=== PATIENT | male | born 1960 | race Caucasian/White ===

== ENCOUNTER 2020-02-15 10:08 | Outpatient (CLI) | payer OTHER, SELFPAY ==
[2020-02-15 10:19] LABS: Basophils Absolute Auto 0.1 K/mm3 (0.0-0.1); Basophils Percent Auto 1.1 % (0.2-1.2); Eosinophils Absolute Auto 0.3 K/mm3 (0-0.3); Eosinophils Percent Auto 4.5 % (0-4.4); Hematocrit 40.5 % (42.0-52.0); Hemoglobin 13.5 g/dL (14.0-18.0); Immature Granulocyte Absolute 0.01 K/mm3 (0.00-0.031); Immature Granulocyte Percent A 0.1 % (0-0.5); Lymphocytes Absolute Auto 1.06 K/mm3 (0.9-3.2); Lymphocytes Percent Auto 14.1 % (18.3-44.2); Mean Corpuscular HGB Conc 33.3 g/dl (32-36); Mean Platelet Volume 9.4 fl (7.4-10.4); Monocytes Absolute Auto 0.7 K/mm3 (0.1-0.6); Monocytes Percent Auto 9.5 % (2.6-8.5); Neutrophils Absolute Auto 5.3 K/mm3 (1.3-6.7); Neutrophils Percent Auto 70.7 % (45.5-73.1); Platelet Count Result 222 k/mm3 (150-375); Red Blood Count 4.22 M/mm3 (4.6-6.20); Red Cell Distribution Width 14.6 % (11.5-14.5); White Blood Count 7.5 K/mm3 (4.5-10.0)
[2020-02-15 13:39] LABS: Alanine Aminotransferase 14 U/L (4-50); Alkaline Phosphatase 123 U/L (38-126); Aspartate Amino Transferase 22 U/L (17-59); Bilirubin,Total 0.2 mg/dL (0.2-1.3); Blood Urea Nitrogen 14 mg/dL (9-20); Calcium 9.1 mg/dL (8.4-10.2); Carbon Dioxide 32 mmol/L (22-30); Chloride 99 mmol/L (98-107); Estimated Glomerular Filt Rate > 60; Glucose 84 mg/dL (75-110); Lactate Dehydrogenase 400 U/L (313-618); Sodium 138 mmol/L (137-145)
[2020-02-15 13:59] LABS: Immunoglobulin G 606 mg/dL (700-1600); Immunoglobulin M 86 mg/dL (40-230)
[2020-02-15 14:01] LABS: Immunoglobulin A < 40 mg/dL (70-400)
== END 2020-02-15 10:09 | disposition home or self-care (01) ==
PROVIDERS: PCP Family Medicine; Visit Provider Internal Medicine Hematology & Oncology
DX: R77.1 Abnormality of globulin (principal); C82.90 Follicular lymphoma, unspecified, unspecified site
CPT/HCPCS: 36415; 80053; 82784; 83615; 85025

== ENCOUNTER 2020-03-31 07:34 | Outpatient (CLI) | payer OTHER, SELFPAY ==
--- NOTE | ~2020-03-31 | CT_ITS ---
EXAMINATION: CT soft tissue neck chest w DATE: 03/31/2020 09:17 INDICATION: Follicular lymphoma, unspecified. TECHNIQUE: Computed tomography (CT) of the neck and chest was performed with 75 mL Omnipaque-350 intr avenous contrast. Automated exposure control and iterative reconstruction technique were employed. Th e dose-length product was 599.34 mGy-cm. COMPARISON: Neck and chest CT 10/31/2018 FINDINGS: NECK CT: There are no pathologically enlarged lymph nodes. There is plaque in the proximal internal c arotid arteries with 0% stenosis relative to normal distal artery lumen diameters. There is mucosal t hickening in the paranasal sinuses including near complete opacification of left maxillary sinus. The re is thickening and sclerosis of the vilchis of left maxillary sinus, consistent with chronic sinusiti s. The mastoid air cells are normal. There is mild cervical spondylosis. There is extensive dental d isease. CHEST CT: There is symmetric scarring at the lung apices. There is mild emphysema. There are tree-in- bud opacities in right lower lobe, right middle lobe, and lingula. Calcified left lung nodules and ca lcified left hilar and mediastinal lymph nodes are consistent with old granulomatous disease. There i s a trace right pleural effusion. The heart size is normal. There are coronary artery calcifications. There are calcifications of the aortic valve. No pericardial effusion. There is ectasia of ascending aorta measuring 4.0 cm. There are no pathologically enlarged lymph nodes. There are greater than 10 low-attenuation lesions in the spleen measuring up to 17 mm, worsened from 14 mm. A 16 mm lesion prev iously measured 12 mm. A 15 mm lesion previously measured 12 mm. There is mild thoracic spondylosis. There is mild chronic height loss of multiple vertebral bodies. IMPRESSION: 1. Worsened splenic lesions, consistent with granulomatous disease versus lymphoma. 2. Worsened tree-in-bud opacities in the right lower lobe, right middle lobe, and lingula, most likel y pneumonia. Lymphoma may rarely present as tree-in-bud opacities. Reviewed, dictated and finalized at location A. IMPRESSION: 1. Worsened splenic lesions, consistent with granulomatous disease versus lymph courtney. 2. Worsened tree-in-bud opacities in the right lower lobe, right middle lobe, a nd lingula, most likely pneumonia. Lymphoma may rarely present as tree-in-bud o pacities.
== END 2020-03-31 07:35 | disposition home or self-care (01) ==
LOC: ANHIMG 07:42
PROVIDERS: PCP Family Medicine; Visit Provider Internal Medicine Hematology & Oncology
DX: C82.90 Follicular lymphoma, unspecified, unspecified site (principal); D73.89 Other diseases of spleen; R91.8 Other nonspecific abnormal finding of lung field
CPT/HCPCS: 70491; 71260; Q9967

== ENCOUNTER 2022-11-01 14:40 | Outpatient (CLI) | payer OTHER, SELFPAY ==
[2022-11-01 14:51] LABS: Basophils Absolute Auto 0.1 K/mm3 (0.0-0.1); Basophils Percent Auto 0.6 % (0.2-1.2); Eosinophils Absolute Auto 0.2 K/mm3 (0-0.3); Eosinophils Percent Auto 1.9 % (0-4.4); Hematocrit 44.5 % (42.0-52.0); Hemoglobin 15.1 g/dL (14.0-18.0); Immature Granulocyte Absolute 0.03 K/mm3 (0.00-0.031); Immature Granulocyte Percent A 0.3 % (0-0.5); Lymphocytes Absolute Auto 1.18 K/mm3 (0.9-3.2); Lymphocytes Percent Auto 11.5 % (18.3-44.2); Mean Corpuscular HGB Conc 33.9 g/dl (32-36); Mean Corpuscular Hemoglobin 32.8 pg (26-34); Mean Corpuscular Volume 96.5 fl (80-100); Mean Platelet Volume 9.3 fl (7.4-10.4); Monocytes Absolute Auto 0.6 K/mm3 (0.1-0.6); Monocytes Percent Auto 5.9 % (2.6-8.5); Neutrophils Absolute Auto 8.2 K/mm3 (1.3-6.7); Neutrophils Percent Auto 79.8 % (45.5-73.1); Platelet Count Result 255 k/mm3 (150-375); Red Blood Count 4.61 M/mm3 (4.6-6.20); Red Cell Distribution Width 11.8 % (11.5-14.5); White Blood Count 10.3 K/mm3 (4.5-10.0)
[2022-11-01 16:39] LABS: Alanine Aminotransferase 63 U/L (6-50); Albumin Level 4.1 g/dL (3.5-5.1); Alkaline Phosphatase 98 U/L (38-126); Anion Gap 7 mmol/L (8-16); Aspartate Amino Transferase 64 U/L (17-59); Bilirubin,Total 0.5 mg/dL (0.2-1.3); Blood Urea Nitrogen 8 mg/dL (9-20); Calcium 9.2 mg/dL (8.4-10.2); Carbon Dioxide 34 mmol/L (22-30); Chloride 97 mmol/L (98-107); Estimated Glomerular Filt Rate > 60; Glucose 109 mg/dL (65-110); Lactate Dehydrogenase 160 U/L (120-246); Potassium 3.4 mmol/L (3.4-5.0); Sodium 138 mmol/L (137-145)
[2022-11-01 16:47] LABS: Immunoglobulin G 500 mg/dL (700-1600); Immunoglobulin M 209 mg/dL (40-230)
[2022-11-01 18:56] LABS: Immunoglobulin A < 40 mg/dL (70-400)
== END 2022-11-01 14:41 | disposition home or self-care (01) ==
LOC: ANHLAB 14:41
PROVIDERS: Visit Provider Internal Medicine Hematology & Oncology
DX: D80.1 Nonfamilial hypogammaglobulinemia (principal); C82.90 Follicular lymphoma, unspecified, unspecified site
CPT/HCPCS: 36415; 80053; 82784; 83615; 85025

== ENCOUNTER 2024-11-25 09:04 | Inpatient (IN) | payer OTHER, SELFPAY ==
[2024-11-25] VITALS (10 sets, daily range): BP systolic 97–135; BP diastolic 64–92; PULSE 79–103; RESP 16–20; TEMP 36.4–37.4; O2SAT 90–99; BMI 17.2
--- NOTE | ~2024-11-25 | XR_ITS ---
EXAMINATION: XR chest 2V DATE: 11/25/2024 10:15 INDICATION: Chest pain with inspiration. TECHNIQUE: Frontal and lateral views of the chest were obtained. COMPARISON: Chest 2 views 10/08/2017, chest CT 03/31/2020 FINDINGS: There are lucencies in the lungs, consistent with emphysema. There is peripheral scarring i n the upper lobes. A calcified left lung nodule is consistent with old granulomatous disease. There a re airspace opacities in right lower lung zone. No pleural effusion or pneumothorax. The heart size i s normal. There is chronic height loss of multiple vertebral bodies. There are surgical clips in righ t axilla. IMPRESSION: 1. Airspace opacities in right lower lung zone, consistent with pneumonia. 2. Emphysema. Reviewed, dictated and finalized at location B.
--- NOTE | ~2024-11-25 | CT_ITS ---
CTA chest PE protocol Ordering provider: NOE Hanna History: 64 years Male with . Rule out PE. VQ was non-diagnostic. Premed ordered . Comparison: March 31, 2020 Technique: CT angiogram chest was performed following timed intravenous injection of contrast. Thin s lice axial images and reformatted coronal images were obtained. Three dimensional reformatted images of the chest were also obtained using a [employer] workstation. . Automated exposure control and iterati ve reconstruction technique were employed. The dose-length product was 188.82 mGy-cm. 100 mL Omnipaqu e 350 was given IV. Findings: PULMONARY ARTERIES: No pulmonary embolus. VISUALIZED THORACIC INLET: Normal. MEDIASTINUM: Aorta/coronary arteries: Mild atheromatous disease. Ascending aorta measures 4.2 cm. Heart/other: The heart is not enlarged. Lymph nodes: No mediastinal or hilar adenopathy. LUNGS: No pulmonary nodules or masses. No effusions. No pneumothorax. Multiple patchy areas of consolidation seen in the right middle and lower lobe suggestive of focal pneumonia. Underlying emphysematous changes. Pleural thickening is seen in the left upper lobe laterally VISUALIZED UPPER ABDOMEN: Otherwise, the visualized upper abdomen is normal. MUSCULOSKELETAL: Soft tissues: The superficial soft tissues are normal. Bones: Age appropriate degenerative changes of the spine. Compression fracture is seen in the midthor acic and upper thoracic area most likely chronic. IMPRESSION: 1. No pulmonary embolism. 2. Multiple patchy areas of consolidation in the right middle lower lobe suggestive of pneumonia. Fo llow-up to resolution advised. 3. Multilevel compression fractures most likely chronic. Reviewed, dictated and finalized at location A. IMPRESSION: 1. No pulmonary embolism. 2. Multiple patchy areas of consolidation in the right middle lower lobe sugge stive of pneumonia. Follow-up to resolution advised. 3. Multilevel compression fractures most likely chronic.
--- NOTE | ~2024-11-25 | NM_ITS ---
EXAMINATION: NM pulmonary perfusion DATE: 11/25/2024 14:43 INDICATION: Right mid back pain. TECHNIQUE: 5.5 mCi Tc-99m MAA was administered intravenously for perfusion images. Scintigraphic palomo ges of the chest were obtained. COMPARISON: Chest 2 views 11/25/2024, ventilation perfusion scintigraphy 04/22/17 FINDINGS: There are large defects in the lower lobes with worsening in superior segment right lower lobe when c ompared to 04/23/2017. There are large defects in left lower lobe, stable from 04/23/2017. IMPRESSION: 1. Nondiagnostic (intermediate probability for pulmonary embolism). Reviewed, dictated and finalized at location B.
--- NOTE | ~2024-11-25 | US_ITS ---
EXAMINATION: US venous doppler [facility] DATE: 11/25/2024 12:22 INDICATION: Lower limb pain. TECHNIQUE: Grayscale ultrasound images without and with compression and Doppler ultrasound images of the bilateral lower extremity veins were obtained. COMPARISON: Ultrasound 03/28/2016 FINDINGS: The visualized portions of right common femoral vein, profunda (deep) femoral vein, femoral vein, pop liteal vein, peroneal veins, posterior tibial veins, and greater saphenous vein outflow are patent. The visualized portions of left common femoral vein, profunda femoral vein, femoral vein, popliteal v ein, peroneal veins, posterior tibial veins, and greater saphenous vein outflow are patent. IMPRESSION: 1. No deep venous thrombosis. Reviewed, dictated and finalized at location B.
--- NOTE | 2024-11-25 09:27 | ECG_ITS ---
Test Date: 2024-11-25 09:35:46 Measurements Intervals [place] Rate: 85 P: -73 DE: 146 QRS: 66 QRSD: 77 T: 37 QT: 401 QTc: 477 Interpretive Statements ECTOPIC ATRIAL RHYTHM POSSIBLE RIGHT VENTRICULAR CONDUCTION DELAY [RSR (QR) IN V1/V2] VOLTAGE CRITERIA FOR LVH [MEETS CRITERIA IN ONE OF: R(aVL), S(V1), R(V5), R(V5/V6)+S(V1)] POSSIBLE SEPTAL MYOCARDIAL INFARCTION , PROBABLY OLD [30 ms Q WAVE IN V1/V2] No previous ECG available for comparison Electronically Signed On 11-25-2024 13:43:09 CDT by Pam Kiser M.D.
--- NOTE | 2024-11-25 09:54 | ED.SOB ---
HPI - SOB/Dyspnea General Chief Complaint: Shortness of Breath/Dyspnea Stated Complaint: SOB Time Seen by Provider: 11/25/24 09:34 Source: patient and old records reviewed Mode of arrival: ambulatory Limitations: no limitations History of Present Illness HPI Narrative: Patient is a 64 y/o male, with PMH of Non-Hodgkin's lymphoma in 2003, who presents to the ED with c/o right mid back pain and shortness of breath. Patient reports he began feeling increasingly short of breath last night. Reports having pain in his right mid back, worse with movement and deep breathing. Has not tried anything for his pain. Has been feeling increasingly short of breath. Also reports productive cough. Does have history of chronic cough, but states he has been bringing up green sputum over the last couple of days. Reports history of frequent pneumonia. Reports he is supposed to be on immunomodulator medications for his lymphoma, but has not been on this for at least 3 years. Has not seen a doctor for the past 3 years. Reports diaphoresis. Denies known fevers. Denies chest pain. Denies abdominal pain. Denies previous history of blood clots. Related Data Allergies Allergy/AdvReac Type Severity Reaction Status Date / Time milk Allergy Mild Diarrhea Verified 11/25/24 10:09 Iodinated Contrast Media Allergy Unknown Hives Verified 11/25/24 10:09 Review of Systems Review of Systems: All systems reviewed & are unremarkable except as noted in HPI. All systems reviewed & are unremarkable except as noted in HPI and below PMFSH Past Medical History Medical History Tobacco dependence Polysubstance abuse Chronic obstructive pulmonary disease Hepatitis C Cocaine use disorder, moderate, in sustained remission (~1993) Opioid use disorder, moderate, in controlled environment (~1993) Non-Hodgkin's lymphoma (~2003) Coronary artery disease due to lipid rich plaque (~03/2016) Anxiety associated with depression (2003) Depression due to physical illness (2003) Chronic pain due to malignant neoplastic disease (~1993) Surgical History Surgical History History of arthroscopy of left knee Family History Family History Mother Family history of coronary artery disease Family history of heart disease in male family member before age 55 Family history of cardiovascular disease, Onset Age: 74 Acute myocardial infarction Family history of congestive heart failure Sibling Family history of heart disease in male family member before age 55 Family history of cardiovascular disease Father Cerebrovascular accident, Onset Age: 80 Hypertension Family history of congestive heart failure Other Diabetes mellitus Family history of kidney disease Social History Social History Social History: Surrogate medical decision maker: Edie Cobb, mother. Code status: Full code. Smoking packs per day: 1 Smoking cigarettes per day: 20.0 Years smoked: 50 Smoking pack-years: 50.00 Smoking status: Current every day smoker Tobacco type: cigarettes Second hand tobacco smoke exposure: No Alcohol intake: former Alcohol use details: No alcohol since the mid following inpatient rehab. Substance use: current Other substance usage details: Urine drug screen positive for cannabinoids and amphetamines on 11/25/2024. Last use: History of cocaine and heroin use Do You Feel Safe in your Home?: Yes Lack of Transportation: No Lack of Food: Never True Current Housing: I Have Housing Concerned About Future Housing: No Difficulty Paying Gas/Electric Bills: No Difficulty Paying for Meds: No Currently Unemployed: No Education: Grade School Difficulty w/ Childcare or Family Care: No Spiritual care concerns: No Exam Narrative: GENERAL: Chronically ill-appearing, appears older than stated age, thin with BMI of 17.2, non-toxic, in no acute distress. HEAD: Normocephalic, atraumatic. RESPIRATORY: Airway patent, respirations nonlabored. Occasional expiratory wheezing xavi, rhonchi in R lower lung zone. No distress. CARDIOVASCULAR: Borderline tachycardic with regular rhythm without murmurs, rubs, or gallops. ABDOMINAL: Soft, no tenderness to palpation, nondistended. Normoactive BS. MUSCULOSKELETAL: Moves all extremities. No gross deformities. Mild TTP in R mid lateral back along R posterior inferior rib cage. No peripheral edema. Minimal tenderness in L calf region. SKIN: Warm, dry, normal color. NEURO: A&O X3. Speech clear. Cranial nerves II-XII grossly intact. Steady gait. No ataxic movements. PSYCHIATRIC: Appropriate mood and affect. Normal interaction. Course Vital Signs Vital signs: Vital Signs Temperature 97.6 F 11/25/24 09:23 Pulse Rate 103 H 11/25/24 09:23 Respiratory Rate 18 11/25/24 09:23 Blood Pressure 135/90 11/25/24 09:23 Pulse Oximetry 99 11/25/24 09:23 Temperature 97.6 F 11/25/24 09:23 Pulse Rate 89 11/25/24 11:51 Respiratory Rate 20 11/25/24 11:51 Blood Pressure 129/92 H 11/25/24 11:44 Pulse Oximetry 97 11/25/24 11:44 MDM - SOB/Dyspnea MDM Narrative Medical decision making narrative: Patient presented to ED with right back/flank pain, onset last night, shortness of breath. Patient mildly tachycardic upon arrival. Oxygen stable on room air, though borderline low 90-94%. He is afebrile. EKG without significant concerning ST changes. Patient denies chest pain at this time. Pain is mostly in back. CBC with white blood cell count of 15. CMP fairly unremarkable. Kidney function is stable. Liver enzymes are slightly elevated, though this appears consistent with previous records. Bilirubin is within normal range. Troponin undetectable. Viral swabs negative. Patient given hour long nebulizer treatment in the ED. Reports breathing is feeling improved. Chest x-ray today showing opacities in right lower lung zone consistent with pneumonia. D-dimer did result minimally elevated to 0.69. Patient has an iodine allergy. Will obtain VQ scan. Nuclear medicine was notified. Will obtain venous Doppler of BLE. Patient was ambulated throughout the ED an oxygen saturation did drop down to 88% with a brief walk. This recovered quickly with rest. He did not require supplemental oxygen. Will be admitted for further evaluation. Blood cultures obtained. Rocephin and azithromycin started in the ED. Discussed case with Dr. Kelly, hospitalist, accepted patient for admission. Patient in agreement with plan and need for admission. Medical Records Attestation: I reviewed the patient's medical records. Lab Data Attestation: I reviewed the patient's lab results. 11/25/24 10:00 11/25/24 10:00 Labs: Lab Results 11/25/24 11/25/24 11/25/24 Range/Units 09:59 10:00 10:00 WBC 15.0 H (4.5-10.0) K/mm3 RBC 5.00 (4.6-6.20) M/mm3 Hgb 16.1 (14.0-18.0) g/dL Hct 48.0 (42.0-52.0) % MCV 96.0 (80-100) fl MCH 32.2 (26-34) pg MCHC 33.5 (32-36) g/dl RDW 12.6 (11.5-14.5) % Plt Count 186 (150-375) k/mm3 MPV 10.0 (7.4-10.4) fl Immature Gran % (Auto) 0.5 (0-0.5) % Neut % (Auto) 84.8 H (45.5-73.1) % Lymph % (Auto) 7.0 L (18.3-44.2) % Barron % (Auto) 6.6 (2.6-8.5) % Eos % (Auto) 0.8 (0-4.4) % Baso % (Auto) 0.3 (0.2-1.2) % Lymph # (Auto) 1.04 (0.9-3.2) K/mm3 Barron # (Auto) 1.0 H (0.1-0.6) K/mm3 Eos # (Auto) 0.1 (0-0.3) K/mm3 Baso # (Auto) 0.0 (0.0-0.1) K/mm3 Abs Immat Gran (auto) 0.07 H (0.00-0.031) K/mm3 Absolute Neuts (auto) 12.7 H (1.3-6.7) K/mm3 Absolute Nucleated RBC 0.000 (0.0-0.012) K/mm3 Nucleated RBC % 0.0 (0.0-0.2) % PT 13.5 (11.1-14.7) Seconds INR 1.0 APTT 28.1 (22.3-36.8) Seconds D-Dimer 0.69 H (<0.48) ug/mL Sodium 136 L (137-145) mmol/L Potassium 3.5 (3.4-5.0) mmol/L Chloride 91 L (98-107) mmol/L Carbon Dioxide 36 H (22-30) mmol/L Anion Gap 9 (4-12) mmol/L BUN 11 (9-20) mg/dL Creatinine 0.52 L (0.7-1.3) mg/dL Estim Creat Clear Calc 110 ml/min Estimated GFR > 60 (59 - ) Glucose 99 (65-110) mg/dL Calcium 9.2 (8.4-10.2) mg/dL Total Bilirubin 1.1 (0.2-1.3) mg/dL AST 72 H (17-59) U/L ALT 70 H (6-50) U/L Alkaline Phosphatase 154 H (38-126) U/L Troponin I < 0.012 Cancelled (0.000-0.034) ng/mL NT-Pro-B Natriuret Pep 490 H (19.9-100) pg/mL Total Protein 7.0 (6.3-8.2) g/dL Albumin 4.1 (3.5-5.1) g/dL Urine Color (Yellow) Urine Appearance (Clear) Urine pH (5.0-9.0) Ur Specific [place] (1.001-1.035) Urine Protein (Negative) mg/dL Urine Glucose (UA) (Negative) mg/dL Urine Ketones (Negative) mg/dL Ur Blood (Man) (Negative) Urine Nitrate (Negative) Urine Bilirubin (Negative) Urine Urobilinogen (<2.0) mg/dL Leukocyte Esterase Rfl (Negative) LUCERO/UL Urine Opiates Screen (Negative) Urine Methadone Screen (Negative) Ur Barbiturates Screen (Negative) Ur Phencyclidine Scrn (Negative) Ur Amphetamine Screen (Negative) U Benzodiazepines Scrn (Negative) Urine Cocaine Screen (Negative) U Cannabinoids Screen (Negative) Influenza A (RT-PCR) (Negative) Influenza B (RT-PCR) (Negative) RSV (RT-PCR) (Negative) SARS-CoV-2 RNA (RT-PCR) (Negative) 11/25/24 11/25/24 Range/Units 10:10 11:46 WBC (4.5-10.0) K/mm3 RBC (4.6-6.20) M/mm3 Hgb (14.0-18.0) g/dL Hct (42.0-52.0) % MCV (80-100) fl MCH (26-34) pg MCHC (32-36) g/dl RDW (11.5-14.5) % Plt Count (150-375) k/mm3 MPV (7.4-10.4) fl Immature Gran % (Auto) (0-0.5) % Neut % (Auto) (45.5-73.1) % Lymph % (Auto) (18.3-44.2) % Barron % (Auto) (2.6-8.5) % Eos % (Auto) (0-4.4) % Baso % (Auto) (0.2-1.2) % Lymph # (Auto) (0.9-3.2) K/mm3 [place] # (Auto) (0.1-0.6) K/mm3 Eos # (Auto) (0-0.3) K/mm3 Baso # (Auto) (0.0-0.1) K/mm3 Abs Immat Gran (auto) (0.00-0.031) K/mm3 Absolute Neuts (auto) (1.3-6.7) K/mm3 Absolute Nucleated RBC (0.0-0.012) K/mm3 Nucleated RBC % (0.0-0.2) % PT (11.1-14.7) Seconds INR APTT (22.3-36.8) Seconds D-Dimer (<0.48) ug/mL Sodium (137-145) mmol/L Potassium (3.4-5.0) mmol/L Chloride (98-107) mmol/L Carbon Dioxide (22-30) mmol/L Anion Gap (4-12) mmol/L BUN (9-20) mg/dL Creatinine (0.7-1.3) mg/dL Estim Creat Clear Calc ml/min Estimated GFR (59 - ) Glucose (65-110) mg/dL Calcium (8.4-10.2) mg/dL Total Bilirubin (0.2-1.3) mg/dL AST (17-59) U/L ALT (6-50) U/L Alkaline Phosphatase (38-126) U/L Troponin I (0.000-0.034) ng/mL NT-Pro-B Natriuret Pep (19.9-100) pg/mL Total Protein (6.3-8.2) g/dL Albumin (3.5-5.1) g/dL Urine Color Dark yellow (Yellow) Urine Appearance Clear (Clear) Urine pH 7.0 (5.0-9.0) Ur Specific [place] 1.020 (1.001-1.035) Urine Protein Negative (Negative) mg/dL Urine Glucose (UA) Negative (Negative) mg/dL Urine Ketones Negative (Negative) mg/dL Ur Blood (Man) Negative (Negative) Urine Nitrate Negative (Negative) Urine Bilirubin Negative (Negative) Urine Urobilinogen 1.0 (<2.0) mg/dL Leukocyte Esterase Rfl Negative (Negative) LUCERO/UL Urine Opiates Screen Negative (Negative) Urine Methadone Screen Negative (Negative) Ur Barbiturates Screen Negative (Negative) Ur Phencyclidine Scrn Negative (Negative) Ur Amphetamine Screen Positive A (Negative) U Benzodiazepines Scrn Negative (Negative) Urine Cocaine Screen Negative (Negative) U Cannabinoids Screen Positive A (Negative) Influenza A (RT-PCR) Negative (Negative) Influenza B (RT-PCR) Negative (Negative) RSV (RT-PCR) Negative (Negative) SARS-CoV-2 RNA (RT-PCR) Negative (Negative) Imaging Data Attestation: I personally reviewed and interpreted this imaging study as follows: Radiologist's impression: ITS Impressions Chest X-Ray 11/25/24 10:22 IMPRESSION: 1. Airspace opacities in right lower lung zone, consistent with pneumonia. 2. Emphysema. ECG Data EKG #1: Attestation: I personally reviewed and interpreted this ECG as follows: ECG completion date: 11/25/24 ECG completion time: 09:35 EKG Interpretation: normal rate (85), sinus rhythm and non-specific ST changes Discharge Plan Discharge Clinical Impression: Acute hypoxic respiratory failure, COPD (chronic obstructive pulmonary disease) Pneumonia Qualifiers: Pneumonia type: due to unspecified organism Laterality: right Lung location: lower lobe of lung Qualified Code(s): J18.9 - Pneumonia, unspecified organism Patient Disposition: Still a Patient Condition: Stable
[2024-11-25 10:09] LABS: Basophils Percent Auto 0.3 % (0.2-1.2); Eosinophils Absolute Auto 0.1 K/mm3 (0-0.3); Eosinophils Percent Auto 0.8 % (0-4.4); Hemoglobin 16.1 g/dL (14.0-18.0); Immature Granulocyte Absolute 0.07 K/mm3 (0.00-0.031); Immature Granulocyte Percent A 0.5 % (0-0.5); Lymphocytes Absolute Auto 1.04 K/mm3 (0.9-3.2); Mean Corpuscular HGB Conc 33.5 g/dl (32-36); Mean Corpuscular Hemoglobin 32.2 pg (26-34); Monocytes Percent Auto 6.6 % (2.6-8.5); Neutrophils Absolute Auto 12.7 K/mm3 (1.3-6.7); Neutrophils Percent Auto 84.8 % (45.5-73.1); Platelet Count Result 186 k/mm3 (150-375); Red Cell Distribution Width 12.6 % (11.5-14.5)
[2024-11-25] MEDS: LIDOCAINE 5% PATCH 1 PATCH TRANSDERM (10:11)
[2024-11-25] MEDS: ACETAMINOPHEN 500 MG TABLET 1000 MG PO (10:15)
[2024-11-25 10:20] LABS: Alanine Aminotransferase 70 U/L (6-50); Albumin Level 4.1 g/dL (3.5-5.1); Alkaline Phosphatase 154 U/L (38-126); Anion Gap 9 mmol/L (4-12); Aspartate Amino Transferase 72 U/L (17-59); Bilirubin,Total 1.1 mg/dL (0.2-1.3); Blood Urea Nitrogen 11 mg/dL (9-20); Calcium 9.2 mg/dL (8.4-10.2); Carbon Dioxide 36 mmol/L (22-30); Chloride 91 mmol/L (98-107); Estimated CRCL calculation 110 ml/min; Estimated Glomerular Filt Rate > 60; Glucose 99 mg/dL (65-110); Potassium 3.5 mmol/L (3.4-5.0); Sodium 136 mmol/L (137-145)
[2024-11-25] MEDS: LEVALBUTEROL NEB 1.25 MG/3 ML 2.5 MG INHALATION (10:21)
[2024-11-25] MEDS: IPRATROPIUM BR 0.02% INH SOLN 0.5 MG/2.5 ML VIAL 1.5 MG INHALATION (10:22)
--- OUTSIDE RECORDS SUMMARY | 2024-11-25 10:27 | XMS_ITS | Clinical Summary ---
Author Organization [facility] Address [address] [place] [address] Care Team Providers Care Gyroscope Repairer Name Role Phone Unavailable Primary Care Provider Unavailabl e Allergies Active Allergy Reactions Criticality Noted Date Comments Iodinated Contrast Media Hives,Diarrhea High 013 Medications albuterol sulfate 90 mcg/actuation metered powder inhaler Take 2 Puffs by inhalation 2 times daily. Active gabapentin (NEURONTIN) 600 mg tablet Take 600 mg by mouth 3 times daily. Active oxyCODONE (ROXICODONE) 30 mg tablet Take 2 Tablets (60 mg) by mouth every 4 hours as needed for Pain. Max Daily Amount: 360 mg 45 Tablet 9 Active diazePAM (VALIUM) 10 mg tablet Take 1 Tablet (10 mg) by mouth every 8 hours as needed for Anxiety. 10 Tablet 9 Active naloxone (NARCAN) 4 mg/spray [place], Non-Aerosol EMERGENCY USE ONLY: Administer 1 spray (4 mg) in one nostril one time. May repeat in alternating nostrils every 2-3 min until responsive or EMS arrives. 2 Each 3 0 Active predniSONE (DELTASONE) 50 mg tabletIndication s:Follicular lymphoma, unspecified follicular lymphoma type, unspecified body region (CMS/HCC) Take 1 Tablet (50 mg) by mouth daily. TAKE 13 HRS, 7 HRS, AND 1 HR BEFORE SCAN. TAKE 50MG PO BENADRYL 1 HR PRIOR TO SCAN. 3 Tablet 0 Active Active Problems Problem Noted Date Diagnosed Date Hypogammaglobulinemia 02/15/2020 Follicular lymphoma 10/27/2018 Family History Medical History Relation Name Comments No Known Problems Brother No Known Problems Father Heart Disease Mother Heart Disease Sister 1 No Known Problems Sister 2 Relation Name Status Comments Brother Alive Father Alive Mother Alive Sister 1 Alive Sister 2 Alive Social History Tobacco Use Types Packs/Day Years Used Date Smoking Tobacco: Every Day Cigarettes 0.5 40 Tobacco Cessation:Ready to Q uit: Not Asked; Counseling Given: Not Answered Alcohol Use Standard Drinks/Week Comments No 0 (1 standard drink = 0.6 oz pur e alcohol) Sex and Gender Information Value Date Recorded Sex Assigned at Not on file Legal Sex Male 1:24 PM PHLEBOTOMY PROGRAM COORDINATOR Gender Identity Not on file Sexual Orientation Not on file Last Filed Vital Signs Vital Sign Reading Time Taken Comments Blood Pressure 135/80 11/01/2022 2:08 PM PHLEBOTOMY PROGRAM COORDINATOR Pulse 86 11/01/2022 2:08 PM PHLEBOTOMY PROGRAM COORDINATOR Temperature 35.9 C (96.7 F) 11/01/2022 2:08 PM PHLEBOTOMY PROGRAM COORDINATOR Respiratory Rate 14 11/01/2022 2:08 PM PHLEBOTOMY PROGRAM COORDINATOR Oxygen Saturation 93% 11/01/2022 2:08 PM PHLEBOTOMY PROGRAM COORDINATOR Inhaled Oxygen Concentration - - Weight 63 kg (138 lb 14.4 oz) 11/01/2022 2:08 PM PHLEBOTOMY PROGRAM COORDINATOR Height 180.3 cm (5' 11) 10/13/2020 8:38 AM PHLEBOTOMY PROGRAM COORDINATOR Body Mass Index 19.37 10/13/2020 8:38 AM PHLEBOTOMY PROGRAM COORDINATOR Plan of Treatment Health Maintenance Due Date Last Done Comments DTAP/TDAP/TD VACCINES (1 - Tdap) 1981 ZOSTER VACCINE (1 of 2) 1981 COLORECTAL SCREENING 2007 Colorectal Cancer Screening 2007 FIT-DNA Q 3 years 2007 FIT/FOBT Q 1 year 2007 Flex Sig/CT Colonography Q 5 years 2007 PNEUMOCOCCAL VACCINE 0-49 YEARS (2 of 2 - PCV) 016 09/17/2014 RSV VACCINE (60+ or ) (1 - Risk 60-74 years 1-dose series) 2022 INFLUENZA VACCINE (#1) 2024 Insurance
--- OUTSIDE RECORDS SUMMARY | 2024-11-25 10:27 | XMS_ITS | Clinical Summary ---
Author Organization [facility] Address [facility] [place] [address] Care Team Providers Care Ornamental Metal Worker Apprentice Name Role Phone None, Provider MD Primary Care Provider Unavaila ble Social History Tobacco Use Types Packs/Day Years Used Date Smoking Tobacco: Never Assessed Sex and Gender Information Value Date Recorded Sex Assigned at Not on file Legal Sex Male 6:46 PM CDT Gender Identity Not on file Sexual Orientation Not on file Last Filed Vital Signs Vital Sign Reading Time Taken Comments Blood Pressure 120/60 03/15/2014 9:20 AM CDT Pulse 95 03/15/2014 9:20 AM CDT Temperature - - Respiratory Rate - - Oxygen Saturation - - Inhaled Oxygen Concentration - - Weight 60.3 kg (133 lb) 03/15/2014 9:20 AM CDT Height 180.3 cm (5' 11) 03/15/2014 9:20 AM CDT Body Mass Index 18.55 03/15/2014 9:20 AM CDT Plan of Treatment Health Maintenance Due Date Last Done Comments Colorectal Cancer Screening Colonoscopy (10 Years) 1962 Annual Physical 1965 Hepatitis C 1980 DTaP, Tdap and Td Vaccines ( 1 - Tdap) 1981 Zoster Vaccines (1 of 2) 2012 COVID-19 Vaccine ( - 2023-2 5 season) 2024 Influenza Adult (#1) 2024 08/12/2013 RSV Immunization or 60+ Years (1 - 1-dose 75+ series) 2037 Meningococcal B Vaccine Aged Out No l onger eligible based on patient's age to complete this topic Meningococcal Vaccine Aged Out No billie lisa eligible based on patient's age to complete this topic Pneumococcal Vaccine: Pediat rics (0 to 5 Years) and At-Risk Patients (6 to 64 Years) Aged Out No longer eligi ble based on patient's age to complete this topic RSV Immunizations Under 20 Months Aged Out No longer eligible based on patient's age to complete this topic Advance Directives Documents on File Type Date Recorded Patient Zipper Setter Chainstitch Expl anation Advance Directives and Living Will 01/07/2017 12:00 AM ADVANCED DIRECTIVES Care Teams Ornamental Metal Worker Apprentice Relationship Specialty Start Date End Date None, Provider, MD PCP - General UNKNOWN PHYSICIAN SPECIALTY 08/13/23
--- OUTSIDE RECORDS SUMMARY | 2024-11-25 10:27 | XMS_ITS | Encounter Summary ---
Author Organization [facility] Address [facility] [place] [address] Care Team Providers Care Sewer Cleaner Name Role Phone Lisa Ortiz MD Primary Care Provider [phone] None, Provider Primary Care Provider Unavaila ble Encounter Details Date Type Department Care Team (Latest Contact Info) Description 07/22/2018 Abstract [facility] , Generic Conversion, Social History Tobacco Use Types Packs/Day Years Used Date Smoking Tobacco: Never Assessed Sex and Gender Information Value Date Recorded Sex Assigned at Not on file Legal Sex Male 6:46 PM CDT Gender Identity Not on file Sexual Orientation Not on file documented as of this encounter Plan of Treatment Not on file documented as of this encounter Visit Diagnoses Not on filedocumented in this encounter Care Teams Sewer Cleaner Relationship Specialty Start Date End Date Lisa Ortiz MD PCP - General 08/03/13 08/12/23 None, ProviderMD PCP - General UNKNOWN PHYSICIAN SPECIALTY 08/13/23 documented as of this encounter
[2024-11-25 10:31] LABS: Troponin I < 0.012 ng/mL (0.000-0.034)
[2024-11-25 10:37] LABS: Prothrombin Time 13.5 Seconds (11.1-14.7)
[2024-11-25 10:38] LABS: Partial Thromboplastin Time 28.1 Seconds (22.3-36.8)
[2024-11-25 10:41] LABS: D Dimer 0.69 ug/mL (<0.48)
[2024-11-25 10:49] LABS: Influenza A QL RT-PCR Negative (Negative); Influenza B QL RT-PCR Negative (Negative); RSV RNA, RT-PCR Negative (Negative); SARS-CoV-2 RNA PCR Negative (Negative)
--- NOTE | 2024-11-25 11:13 | PC.NURSE ---
Vascular access called to obtain blood cultures.
--- NOTE | 2024-11-25 11:18 | PC.NURSE ---
Ambulatory in halls. SPO2 90-91% with ambulation.
--- NOTE | 2024-11-25 11:41 | PC.NURSE ---
Lab called to add on BNP.
[2024-11-25 12:05] LABS: NT Pro B Type Natriuretic Pept 490 pg/mL (19.9-100)
[2024-11-25 12:09] LABS: Add Urine Microscopic? YES; Appearance Urine Clear (Clear); Bilirubin Urine Negative (Negative); Blood Urine Negative (Negative); Color Urine Dark Yellow (Yellow); Glucose Urine UA Negative (Negative); Ketones Urine Negative (Negative); Leukocyte Esterase Ur Negative LEU/UL (Negative); Nitrate Urine Negative (Negative); Protein Urine Negative (Negative)
[2024-11-25 12:40] LABS: Barbiturate Screen Urine Negative (Negative); Benzodiazepines Screen Urine Negative (Negative)
[2024-11-25 12:42] LABS: Cannabinoid Screen Urine Positive (Negative); Cocaine Screen Urine Negative (Negative); Methadone Screen Urine Negative (Negative); Opiate Screen Urine Negative (Negative); Phencyclidine Screen Urine Negative (Negative)
[2024-11-25 12:57] LABS: Amphetamine Screen Urine Positive (Negative)
--- NOTE | 2024-11-25 12:59 | ADMGEN ---
This patient, Justin Cobb Jr., was admitted to Medical Room 257-01. Patient/family oriented to hospital policies and general routines including ID bracelet, bed and alarms, visiting hours, pain management, procedures, bathroom and other care routines, personal items, smoking policy, room service/diet, and visiting hours. Information on how to activate the Rapid Response Team has been discussed. Patient/Family are encouraged to report perceived risks to care and to ask questions if they do not understand what they are told or what they should do.
--- NOTE | 2024-11-25 14:15 | PM.IMHP ---
H&P: HPI History of Present Illness Date/Time: 11/25/24 15:00 Chief Complaint: Right back pain and shortness of breath. Narrative: This is a 64-year-old male with history of non-Hodgkin lymphoma diagnosed in 2003 for which he has not followed up with his doctor for least 3 years, coronary artery disease, chronic obstructive pulmonary disease, and hepatitis C who presented to the emergency department complaints of right back pain and shortness of breath. The patient provides the following history. Yesterday he began to feel increasingly short of breath from baseline and reports nonradiating, sharp and shooting pain in the right mid back which is worse with movement and deep inspiration. He has not noticed any significant alleviating factors. Additionally he endorses a chronic cough although over the past 3 days it has worsened and is now productive of green-colored sputum. He has had sweats but denies fever, chills, sinus congestion, sore throat, exertional chest pain, vomiting, diarrhea, lower extremity edema, and calf pain. In the ED: Vital signs were stable on arrival. Labs were significant for WBC count of 15.0, D-dimer 0.69, sodium 136, chloride 91, carbon dioxide 36, AST 72, ALT 70, alkaline phosphatase 154, proBNP 490, troponin less than 0.012. Urine drug screen was positive for amphetamines and cannabinoids. Respiratory panel was negative. Chest x-ray showed airspace opacities in right lower lung zone consistent with pneumonia and findings of emphysema. Lower extremity venous Doppler ultrasounds were negative for DVT. He was given a nebulizer treatment and doses of azithromycin and ceftriaxone. With ambulation the patient'ss SpO2 dropped into the upper 80s and he is being admitted in this setting. Review of Systems Review of Systems: 12 systems were reviewed and are negative except for as per HPI. [facility] Past Medical History Medical History Tobacco dependence Polysubstance abuse Chronic obstructive pulmonary disease Hepatitis C Cocaine use disorder, moderate, in sustained remission (~1993) Opioid use disorder, moderate, in controlled environment (~1993) Non-Hodgkin's lymphoma (~2003) Coronary artery disease due to lipid rich plaque (~03/2016) Anxiety associated with depression (2003) Depression due to physical illness (2003) Chronic pain due to malignant neoplastic disease (~1993) Surgical History Surgical History (Updated 11/25/24 @ 20:22 by Becky Carter PA-C) History of coronary artery stent placement right coronary artery History of arthroscopy of left knee Family History Family History Mother Family history of coronary artery disease Family history of heart disease in male family member before age 55 Family history of cardiovascular disease, Onset Age: 74 Acute myocardial infarction Family history of congestive heart failure Sibling Family history of heart disease in male family member before age 55 Family history of cardiovascular disease Father Cerebrovascular accident, Onset Age: 80 Hypertension Family history of congestive heart failure Other Diabetes mellitus Family history of kidney disease Social History Social History Social History: Surrogate medical decision maker: Edie Cobb, mother. Code status: Full code. Smoking packs per day: 1 Smoking cigarettes per day: 20.0 Years smoked: 50 Smoking pack-years: 50.00 Smoking status: Current every day smoker Tobacco type: cigarettes Second hand tobacco smoke exposure: No Alcohol intake: former Alcohol use details: No alcohol since the mid following inpatient rehab. Substance use: current Other substance usage details: Urine drug screen positive for cannabinoids and amphetamines on 11/25/2024. Last use: History of cocaine and heroin use Do You Feel Safe in your Home?: Yes Lack of Transportation: No Lack of Food: Never True Current Housing: I Have Housing Concerned About Future Housing: No Difficulty Paying Gas/Electric Bills: No Difficulty Paying for Meds: No Currently Unemployed: No Education: Grade School Difficulty w/ Childcare or Family Care: No Spiritual care concerns: No Meds Home Medications and Allergies Home Medications ?Medication ?Instructions ?Recorded ?Confirmed ?Type albuterol sulfate 90 mcg/actuation 2 puff inhalation Q4-6H PRN 12/07/19 11/25/24 Rx aerosol inhaler (Ventolin HFA) shortness of breath #18 grams Allergies Allergy/AdvReac Type Severity Reaction Status Date / Time milk Allergy Mild Diarrhea Verified 11/25/24 10:09 Iodinated Contrast Media Allergy Unknown Hives Verified 11/25/24 10:09 Vital Signs Vital Signs - 24 hr 11/25/24 09:23 11/25/24 10:25 11/25/24 11:44 Temperature 97.6 F Pulse Rate 103 H 86 101 H Respiratory Rate 18 17 20 Blood Pressure 135/90 129/92 H Pulse Oximetry 99 97 11/25/24 11:51 Temperature Pulse Rate 89 Respiratory Rate 20 Blood Pressure Pulse Oximetry Exam Narrative: General: Thin, chronically ill-appearing male sitting up in bed in no acute distress. Weight: 56 kg. BMI: 17.2. HEENT: PERRL, EOMI. Sclera anicteric. Tacky mucous membranes. Neck: Supple. No JVD. Respiratory: Respirations are nonlabored and he is speaking in full sentences. Occasional cough. Lung sounds are diminished throughout with scattered wheezing. Cardiovascular: Regular rate and rhythm with S1-S2. Gastrointestinal: Abdomen is soft, nontender, and nondistended with positive bowel sounds. Skin: Warm and dry. No rash or lesions on limited exam. Extremities: No cyanosis, clubbing, or significant edema. Radial and pedal pulses intact. Neurological: Alert. Cranial nerves 2-12 are grossly intact. No gross focal deficits to casual conversation. Psychiatric: Cooperative with appropriate mood and flat affect. H&P: Results Labs Labs: Short CBC 11/25/24 Range/Units 10:00 WBC 15.0 H (4.5-10.0) K/mm3 Hgb 16.1 (14.0-18.0) g/dL Hct 48.0 (42.0-52.0) % Plt Count 186 (150-375) k/mm3 BMP 11/25/24 10:00 Sodium 136 L Potassium 3.5 Chloride 91 L Carbon Dioxide 36 H BUN 11 Creatinine 0.52 L Glucose 99 Calcium 9.2 Cardiac Enzymes 11/25/24 11/25/24 Range/Units 10:00 10:00 Troponin I < 0.012 Cancelled (0.000-0.034) ng/mL Liver Function 11/25/24 Range/Units 10:00 Total Bilirubin 1.1 (0.2-1.3) mg/dL AST 72 H (17-59) U/L ALT 70 H (6-50) U/L Alkaline Phosphatase 154 H (38-126) U/L Albumin 4.1 (3.5-5.1) g/dL Urine 11/25/24 Range/Units 11:46 Urine Color Dark yellow (Yellow) Urine Appearance Clear (Clear) Urine pH 7.0 (5.0-9.0) Ur Specific [place] 1.020 (1.001-1.035) Urine Protein Negative (Negative) mg/dL Urine Glucose (UA) Negative (Negative) mg/dL Imaging Chest X-Ray 11/25/24 10:22 IMPRESSION: 1. Airspace opacities in right lower lung zone, consistent with pneumonia. 2. Emphysema. Venous Doppler Study 11/25/24 12:26 IMPRESSION: 1. No deep venous thrombosis. Assessment and Plan Assessment and plan (1) Right lower lobe pneumonia: Code(s): J18.9 - Pneumonia, unspecified organism Status: Acute (2) Hypoxia: Code(s): R09.02 - Hypoxemia Status: Acute (3) Chronic obstructive pulmonary disease: Code(s): J44.9 - Chronic obstructive pulmonary disease, unspecified Status: Acute (4) Elevated LFTs: Code(s): R79.89 - Other specified abnormal findings of blood chemistry Status: Acute (5) Polysubstance abuse: Code(s): F19.10 - Other psychoactive substance abuse, uncomplicated Status: Acute (6) Tobacco dependence: Code(s): F17.200 - Nicotine dependence, unspecified, uncomplicated Status: Acute (7) Non-Hodgkin's lymphoma: Onset Date: ~2003 Code(s): C85.90 - Non-Hodgkin lymphoma, unspecified, unspecified site Status: Acute Plan The patient presented to the emergency department with complaints of shortness of breath, productive cough, and right mid back pain as detailed in HPI. Labs, imaging, EKG, and all reports were personally reviewed. Chest x-ray shows right lower lobe pneumonia and he has been started on azithromycin and ceftriaxone. Sputum culture ordered. Check Legionella pneumococcal antigens as well as mycoplasma IgM. Continue scheduled bronchodilators. Pulmonary embolism is considered however it is felt that his symptoms are likely related to pneumonia. D-dimer was a bit elevated and a V/Q scan is pending. Lower extremity venous Doppler ultrasounds were negative for DVT. LFTs are mildly elevated and may be related to his history of hepatitis or lymphoma. Abdominal exam is benign and we will continue to trend. We discussed the importance of following up with his doctor regarding his lymphoma though he does not seem to be interested. Urine drug screen was positive for amphetamines and cannabinoids however he denies drug use aside from occasional marijuana. Smoking cessation is encouraged. Nicotine patch available per patient request. His medications will be reviewed and resumed as appropriate. Findings and treatment plan were discussed with the patient. Questions were solicited and answered to satisfaction. The patient's medical management will be taken over by the hospitalist team in a.m. Quality VTE Prophylaxis VTE prophylaxis: pharmacologic ordered The patient has been admitted under observation status. Hospitalist [facility] Advance Care Plan I have confirmed that the patient's Advanced Care Plan is present, code status is documented, or surrogate decision maker is listed in patient medical record.: Yes Medication Reconciliation I have utilized all available resources to obtain, update and review the patients current medications (includes all prescriptions, OTC, herbals, cannabis, and nutritional supplements).: Yes
[2024-11-25] MEDS: AZITHROMYCIN 500 MG/NS 250 ML 500 MG/250 ML BAG 250 MG IVPB (14:20)
[2024-11-25] MEDS: NICOTINE (*PBKC) 21 MG PATCH 1 PATCH TRANSDERM (18:01)
[2024-11-25 19:22] LABS: MRSA (PCR) NOT DETECTED (NOT DETECTE)
[2024-11-25] MEDS: IPRATROPIUM 0.5 MG/ALBUTEROL SULFATE 2.5 MG AMPUL.NEB 3 ML INHALATION (19:42)
[2024-11-25] MEDS: guaiFENesin 12 HR 600 MG TABCR 1200 MG PO (21:12)
[2024-11-26] VITALS (16 sets, daily range): BP systolic 123–133; BP diastolic 71–82; PULSE 80–94; RESP 16–20; TEMP 36.5–36.9; O2SAT 91–97; BMI 19.5
[2024-11-26] MEDS: IPRATROPIUM 0.5 MG/ALBUTEROL SULFATE 2.5 MG AMPUL.NEB 3 ML INHALATION ×4 (01:13→19:50)
[2024-11-26 05:06] LABS: Hematocrit 44.5 % (42.0-52.0); Mean Corpuscular HGB Conc 33.7 g/dl (32-36); Mean Corpuscular Hemoglobin 32.4 pg (26-34); Mean Corpuscular Volume 96.1 fl (80-100); Platelet Count Result 167 k/mm3 (150-375); Red Blood Count 4.63 M/mm3 (4.6-6.20); Red Cell Distribution Width 12.8 % (11.5-14.5); White Blood Count 13.3 K/mm3 (4.5-10.0)
[2024-11-26 05:20] LABS: Alanine Aminotransferase 59 U/L (6-50); Albumin Level 3.3 g/dL (3.5-5.1); Alkaline Phosphatase 127 U/L (38-126); Anion Gap 8 mmol/L (4-12); Aspartate Amino Transferase 61 U/L (17-59); Bilirubin,Total 0.7 mg/dL (0.2-1.3); Blood Urea Nitrogen 11 mg/dL (9-20); Calcium 8.8 mg/dL (8.4-10.2); Carbon Dioxide 35 mmol/L (22-30); Chloride 91 mmol/L (98-107); Estimated CRCL calculation 90 ml/min; Estimated Glomerular Filt Rate > 60; Glucose 184 mg/dL (65-110); Magnesium 2.2 mg/dL (1.6-2.3); Potassium 3.5 mmol/L (3.4-5.0); Sodium 134 mmol/L (137-145)
--- NOTE | 2024-11-26 08:02 | P.PNIM_ITS ---
Progress Note: A&P Assessment and Plan (1) Right lower lobe pneumonia: Code(s): J18.9 - Pneumonia, unspecified organism Status: Acute Assessment and Plan: * Continue current antibiotics of azithromycin and Rocephin * supportive care * pulmonary toilet * nebulizers as ordered * Blood cultures pending * sputum culture ordered * Legionella and mycoplasma pending. (2) Hypoxia: Code(s): R09.02 - Hypoxemia Status: Acute Assessment and Plan: * see 1. * Obtain CT a PE protocol secondary to elevated dimer and dyspnea. Premedication ordered secondary to iodine allergy. * V/Q scan performed yesterday was nondiagnostic but did show large defect in the bilateral lower lobes with worsening in the superior segment of the right lower lobe. (3) Chronic obstructive pulmonary disease: Code(s): J44.9 - Chronic obstructive pulmonary disease, unspecified Status: Acute Assessment and Plan: * Acute on chronic * continue supportive care * monitor labs and trend vitals (4) Elevated LFTs: Code(s): R79.89 - Other specified abnormal findings of blood chemistry Status: Acute Assessment and Plan: * elevated LFTs most likely secondary to history of hepatitis-C or lymphoma * trend and monitor for any acute gastrointestinal symptoms. (5) Polysubstance abuse: Code(s): F19.10 - Other psychoactive substance abuse, uncomplicated Status: Acute Assessment and Plan: * Counseled for use of illicit substances. (6) Tobacco dependence: Code(s): F17.200 - Nicotine dependence, unspecified, uncomplicated Status: Chronic Assessment and Plan: * Nicotine patch ordered (7) Non-Hodgkin's lymphoma: Onset Date: ~2003 Code(s): C85.90 - Non-Hodgkin lymphoma, unspecified, unspecified site Status: Acute Time Spent With Patient Time with patient: 15 - 25 minutes Subjective Date/time seen: 11/26/24 08:02 Interval history: This patient was examined at the bedside today states he feels terrible. Patient states breathing is about the same, but notes he overall does not feel at all improved. He continues to cough. V/Q scan was performed yesterday for an elevated D-dimer, however it was nondiagnostic. There were noted large defect in the bilateral lower lobes with worsening in the superior segment of the right lower lobe. Given patient's elevated D-dimer we are unable to rule out pulmonary embolism at this point. Patient has a documented contrast to Iod ine of hives. I discussed with patient at the bedside my desire to premedicate with steroids and Benadryl and move forward with CT a PE protocol so that we could rule out or rule in pulmonary embolism complicating his current breathing status. He is agreeable to this. Orders were placed at this time. No other new or acute complaints to note today. Review of Systems Review of Systems: All systems reviewed & are unremarkable except as noted in HPI and below Exam Narrative: General: Thin, chronically ill-appearing male sitting up in bed in no acute distress. HEENT: PERRL, EOMI. Neck: Supple. No JVD. Respiratory: No acute distress. Lung sounds demonstrating coarse rhonchi and scattered wheezing throughout. Cardiovascular: Regular rate and rhythm with S1-S2. Gastrointestinal: Abdomen is soft, nontender, and nondistended with positive bowel sounds. Skin: Warm and dry. No rash or lesions on limited exam. Extremities: No cyanosis, clubbing, or significant edema. Radial and pedal pulses intact. Neurological: Alert. Cranial nerves 2-12 are grossly intact. No focal abnormalities. Psychiatric: Cooperative with appropriate mood and flat affect. Objective Data Vital Signs Vital Signs: Vital Signs - 24 hr 11/25/24 09:23 11/25/24 10:25 11/25/24 11:44 Temperature 97.6 F Pulse Rate 103 H 86 101 H Respiratory Rate 18 17 20 Blood Pressure 135/90 129/92 H Pulse Oximetry 99 97 Oxygen Delivery 11/25/24 11:51 11/25/24 14:00 11/25/24 16:00 Temperature 99.3 F Pulse Rate 89 83 79 Respiratory Rate 20 18 Blood Pressure 110/70 Pulse Oximetry 90 Oxygen Delivery 11/25/24 17:02 11/25/24 19:42 11/25/24 19:54 Temperature Pulse Rate 84 91 Respiratory Rate 18 18 Blood Pressure Pulse Oximetry Oxygen Delivery Room Air 11/25/24 20:00 11/25/24 20:00 11/25/24 21:19 Temperature 99.3 F Pulse Rate 90 94 Respiratory Rate 16 Blood Pressure 97/64 L Pulse Oximetry 92 Oxygen Delivery Room Air 11/26/24 00:00 11/26/24 01:13 11/26/24 01:23 Temperature Pulse Rate 94 93 94 Respiratory Rate 18 18 Blood Pressure Pulse Oximetry Oxygen Delivery 11/26/24 04:00 11/26/24 05:48 Temperature 98.4 F Pulse Rate 88 88 Respiratory Rate 16 Blood Pressure 123/71 Pulse Oximetry 97 Oxygen Delivery Intake/Output Intake/Output: Intake & Output 11/23/24 11/24/24 11/25/24 11/26/24 23:59 23:59 23:59 23:59 Intake Total 290 600 Output Total 525 700 Balance -235 -100 Meds/Results Medications: Active Medications Generic Name Dose Route Start Last Admin Trade Name Freq PRN Reason Stop Dose Admin Acetaminophen 650 mg 11/25/24 11:36 Acetaminophen 650 Mg Suppository RECTAL Q6H PRN Mild Pain (1-3) or Fever Hydrocodone Bitart/Acetaminophen 1 tab 11/25/24 11:36 Hydrocodone/Acetaminophen (*Crx) 5-325 Mg Tablet PO Q4H PRN Pain Rated 4-6 Albuterol/Ipratropium 3 ml 11/25/24 20:00 11/26/24 01:13 Ipratropium 0.5 Mg/Albuterol Sulfate 2.5 Mg Ampul.Neb 3 Ml INHALATION 3 ml Q6HRT MACK Administration Diphenhydramine HCl 50 mg 11/26/24 07:59 Diphenhydramine Hcl Inj 50 Mg/Ml Vial IV PUSH 11/26/24 08:00 ONCE ONE Enoxaparin Sodium 40 mg 11/26/24 09:00 Enoxaparin 40 Mg/0.4 Ml Syringe SUB-Q DAILY COUNTS INCLUDE 234 BEDS AT THE [facility] Guaifenesin 1,200 mg 11/25/24 21:00 11/25/24 21:12 Guaifenesin 12 Hr 600 Mg Tabcr PO 1,200 mg Q12HR MACK Administration Ceftriaxone Sodium 1 gm in 50 mls @ 100 mls/hr 11/26/24 12:00 Rocephin 1 Gm/Ns 50 Ml IVPB Q24H COUNTS INCLUDE 234 BEDS AT THE [facility] Azithromycin 500 mg in 250 mls @ 250 mls/hr 11/26/24 13:00 Zithromax IVPB Q24H COUNTS INCLUDE 234 BEDS AT THE [facility] Methylprednisolone Sodium Succinate 40 mg 11/26/24 08:00 Methylprednisolone Sod Succ 40 Mg Vial IV PUSH Q4H COUNTS INCLUDE 234 BEDS AT THE [facility] Nicotine 1 patch 11/25/24 17:00 11/25/24 18:01 Nicotine (*Pbkc) 21 Mg Patch TRANSDERM 1 patch DAILY MACK Administration Ondansetron HCl 4 mg 11/25/24 11:36 Ondansetron Inj 4 Mg/2 Ml Vial IV PUSH Q4H PRN Nausea Radiology Results: ITS Impressions Chest X-Ray 11/25/24 10:22 IMPRESSION: 1. Airspace opacities in right lower lung zone, consistent with pneumonia. 2. Emphysema. Venous Doppler Study 11/25/24 12:26 IMPRESSION: 1. No deep venous thrombosis. Pulmonary Perfusion Imaging 11/25/24 14:46 IMPRESSION: 1. Nondiagnostic (intermediate probability for pulmonary embolism). Labs Labs: Laboratory Results - last 24 hr 11/25/24 11/25/24 11/25/24 09:59 10:00 10:00 WBC 15.0 H RBC 5.00 Hgb 16.1 Hct 48.0 MCV 96.0 MCH 32.2 MCHC 33.5 RDW 12.6 Plt Count 186 MPV 10.0 Immature Gran % (Auto) 0.5 Neut % (Auto) 84.8 H Lymph % (Auto) 7.0 L Petroleum % (Auto) 6.6 Eos % (Auto) 0.8 Baso % (Auto) 0.3 Lymph # (Auto) 1.04 Petroleum # (Auto) 1.0 H Eos # (Auto) 0.1 Baso # (Auto) 0.0 Abs Immat Gran (auto) 0.07 H Absolute Neuts (auto) 12.7 H Absolute Nucleated RBC 0.000 Nucleated RBC % 0.0 PT 13.5 INR 1.0 APTT 28.1 D-Dimer 0.69 H Sodium 136 L Potassium 3.5 Chloride 91 L Carbon Dioxide 36 H Anion Gap 9 BUN 11 Creatinine 0.52 L Estim Creat Clear Calc 110 Estimated GFR > 60 Glucose 99 Calcium 9.2 Phosphorus Magnesium Total Bilirubin 1.1 AST 72 H ALT 70 H Alkaline Phosphatase 154 H Troponin I < 0.012 Cancelled NT-Pro-B Natriuret Pep 490 H Total Protein 7.0 Albumin 4.1 Urine Color Urine Appearance Urine pH Ur Specific Kersey Urine Protein Urine Glucose (UA) Urine Ketones Ur Blood (Man) Urine Nitrate Urine Bilirubin Urine Urobilinogen Leukocyte Esterase Rfl Nasal MRSA (PCR) Urine Opiates Screen Urine Methadone Screen Ur Barbiturates Screen Ur Phencyclidine Scrn Ur Amphetamine Screen U Benzodiazepines Scrn Urine Cocaine Screen U Cannabinoids Screen Influenza A (RT-PCR) Influenza B (RT-PCR) RSV (RT-PCR) SARS-CoV-2 RNA (RT-PCR) 11/25/24 11/25/24 11/25/24 10:10 11:46 18:04 WBC RBC Hgb Hct MCV MCH MCHC RDW Plt Count MPV Immature Gran % (Auto) Neut % (Auto) Lymph % (Auto) Petroleum % (Auto) Eos % (Auto) Baso % (Auto) Lymph # (Auto) Petroleum # (Auto) Eos # (Auto) Baso # (Auto) Abs Immat Gran (auto) Absolute Neuts (auto) Absolute Nucleated RBC Nucleated RBC % PT INR APTT D-Dimer Sodium Potassium Chloride Carbon Dioxide Anion Gap BUN Creatinine Estim Creat Clear Calc Estimated GFR Glucose Calcium Phosphorus Magnesium Total Bilirubin AST ALT Alkaline Phosphatase Troponin I NT-Pro-B Natriuret Pep Total Protein Albumin Urine Color Dark yellow Urine Appearance Clear Urine pH 7.0 Ur Specific Kersey 1.020 Urine Protein Negative Urine Glucose (UA) Negative Urine Ketones Negative Ur Blood (Man) Negative Urine Nitrate Negative Urine Bilirubin Negative Urine Urobilinogen 1.0 Leukocyte Esterase Rfl Negative Nasal MRSA (PCR) Not detected Urine Opiates Screen Negative Urine Methadone Screen Negative Ur Barbiturates Screen Negative Ur Phencyclidine Scrn Negative Ur Amphetamine Screen Positive A U Benzodiazepines Scrn Negative Urine Cocaine Screen Negative U Cannabinoids Screen Positive A Influenza A (RT-PCR) Negative Influenza B (RT-PCR) Negative RSV (RT-PCR) Negative SARS-CoV-2 RNA (RT-PCR) Negative 11/26/24 04:50 WBC 13.3 H RBC 4.63 Hgb 15.0 Hct 44.5 MCV 96.1 MCH 32.4 MCHC 33.7 RDW 12.8 Plt Count 167 MPV 10.0 Immature Gran % (Auto) Neut % (Auto) Lymph % (Auto) Petroleum % (Auto) Eos % (Auto) Baso % (Auto) Lymph # (Auto) Petroleum # (Auto) Eos # (Auto) Baso # (Auto) Abs Immat Gran (auto) Absolute Neuts (auto) Absolute Nucleated RBC Nucleated RBC % PT INR APTT D-Dimer Sodium 134 L Potassium 3.5 Chloride 91 L Carbon Dioxide 35 H Anion Gap 8 BUN 11 Creatinine 0.57 L Estim Creat Clear Calc 90 Estimated GFR > 60 Glucose 184 H Calcium 8.8 Phosphorus 3.0 Magnesium 2.2 Total Bilirubin 0.7 AST 61 H ALT 59 H Alkaline Phosphatase 127 H Troponin I NT-Pro-B Natriuret Pep Total Protein 6.0 L Albumin 3.3 L Urine Color Urine Appearance Urine pH Ur Specific Kersey Urine Protein Urine Glucose (UA) Urine Ketones Ur Blood (Man) Urine Nitrate Urine Bilirubin Urine Urobilinogen Leukocyte Esterase Rfl Nasal MRSA (PCR) Urine Opiates Screen Urine Methadone Screen Ur Barbiturates Screen Ur Phencyclidine Scrn Ur Amphetamine Screen U Benzodiazepines Scrn Urine Cocaine Screen U Cannabinoids Screen Influenza A (RT-PCR) Influenza B (RT-PCR) RSV (RT-PCR) SARS-CoV-2 RNA (RT-PCR) Quality VTE Prophylaxis VTE prophylaxis: pharmacologic ordered
[2024-11-26] MEDS: guaiFENesin 12 HR 600 MG TABCR 1200 MG PO ×2 (08:41→20:44)
[2024-11-26] MEDS: ENOXAPARIN 40 MG/0.4 ML SYRINGE SUB-Q (08:42)
[2024-11-26] MEDS: methylPREDNISolone SOD SUCC 40 MG VIAL IV PUSH ×4 (08:42→20:44)
[2024-11-26] MEDS: NICOTINE (*PBKC) 21 MG PATCH 1 PATCH TRANSDERM (08:43)
[2024-11-26] MEDS: AZITHROMYCIN 500 MG/NS 250 ML 500 MG/250 ML BAG 250 MG IVPB (12:26)
[2024-11-26] MEDS: diphenhydrAMINE HCl INJ 50 MG/ML VIAL IV PUSH (21:26)
[2024-11-27] VITALS (15 sets, daily range): BP systolic 112–135; BP diastolic 68–77; PULSE 72–98; RESP 16–20; TEMP 36.3–36.6; O2SAT 93–97
[2024-11-27] MEDS: methylPREDNISolone SOD SUCC 40 MG VIAL IV PUSH ×2 (00:04→03:53)
[2024-11-27] MEDS: IPRATROPIUM 0.5 MG/ALBUTEROL SULFATE 2.5 MG AMPUL.NEB 3 ML INHALATION ×3 (01:32→14:24)
[2024-11-27] MEDS: guaiFENesin 12 HR 600 MG TABCR 1200 MG PO ×2 (08:37→21:20)
[2024-11-27] MEDS: NICOTINE (*PBKC) 21 MG PATCH 1 PATCH TRANSDERM (08:38)
[2024-11-27] MEDS: ENOXAPARIN 40 MG/0.4 ML SYRINGE SUB-Q (08:38)
--- NOTE | 2024-11-27 09:22 | P.PNIM_ITS ---
Progress Note: A&P Assessment and Plan (1) Cocaine use disorder, moderate, in sustained remission: Onset Date: ~1993 Code(s): F14.21 - Cocaine dependence, in remission Status: Acute (2) Opioid use disorder, moderate, in controlled environment: Onset Date: ~1993 Code(s): F11.20 - Opioid dependence, uncomplicated Status: Acute (3) COPD (chronic obstructive pulmonary disease): Code(s): J44.9 - Chronic obstructive pulmonary disease, unspecified Status: Acute (4) Acute hypoxic respiratory failure: Code(s): J96.01 - Acute respiratory failure with hypoxia Status: Acute (5) Pneumonia: Qualifiers: Laterality: right Lung location: lower lobe of lung Pneumonia type: due to unspecified organism Qualified Code(s): J18.9 - Pneumonia, unspecified organism Code(s): J18.9 - Pneumonia, unspecified organism Status: Acute Plan (1) Right lower lobe pneumonia: Code(s): J18.9 - Pneumonia, unspecified organism Status: Acute Assessment and Plan: CTA chest shows no pulmonary embolism but multifocal pneumonia involving right middle and lower lobe Patient is antibiotics of azithromycin and Rocephin sputum culture ordered Legionella and mycoplasma pending. Patient is immunocompromised, patient has Hodgkin lymphoma, changed to cefepime IV, continue azithromycin IV Pending MRSA screening Acute respiratory failure with hypoxemia Code(s): R09.02 - Hypoxemia Status: Acute Assessment and Plan: Likely resulting from COPD exacerbation COPD exacerbation Patient has history of COPD, patient has reported cough shortness breath and respiratory failure Resulting from pneumonia Antibiotics see above Start DuoNeb scheduled albuterol nebulizer p.r.n. Start prednisone p.o. (4) Elevated LFTs: Code(s): R79.89 - Other specified abnormal findings of blood chemistry Status: Acute Assessment and Plan: * elevated LFTs most likely secondary to history of hepatitis-C or lymphoma * trend and monitor for any acute gastrointestinal symptoms. (5) Polysubstance abuse: Code(s): F19.10 - Other psychoactive substance abuse, uncomplicated Status: Acute Assessment and Plan: * Counseled for use of illicit substances. (6) Tobacco dependence: Code(s): F17.200 - Nicotine dependence, unspecified, uncomplicated Status: Chronic Assessment and Plan: * Nicotine patch ordered (7) Non-Hodgkin's lymphoma: Onset Date: ~2003 Code(s): C85.90 - Non-Hodgkin lymphoma, unspecified, unspecified site Status: Acute Thoracic spine compression fracture Compression fracture is seen in the midthoracic and upper thoracic area most likely chronic on CT scan No pain Patient has no neuro focal deficit Subjective Date/time seen: 11/27/24 09:22 Interval history: I saw examined patient today, patient feels better, still has cough with yellow- greenish sputum. Dyspnea is improving. Patient denies shortness breast abdomen pain nausea vomiting. Patient is afebrile blood pressure stable Exam Narrative: GENERAL: Pleasant, in no acute distress. Well-nourished. - EYES: EOMI. Anicteric. - HENT: Moist mucous membranes. - LUNGS: Coarse breath sound bilaterall y - CARDIOVASCULAR: Regular rate and rhyth m. No murmur. No JVD. - ABDOMEN: Soft, non-tender and non-dist ended. No palpable masses. - EXTREMITIES: No edema. Peripheral puls es 2+. Non-tender. - NEUROLOGIC: No focal neurological defi cits. CN II-XII grossly intact. - PSYCHIATRIC: Awake, Alert and oriented x 3. Appropriate mood and affect. - SKIN: No rashes or lesions. Warm. - LYMPH: No cervical lymphadenopathy. Objective Data Vital Signs Vital Signs: Vital Signs - 24 hr 11/26/24 12:00 11/26/24 13:56 11/26/24 14:45 Temperature 97.9 F Pulse Rate 84 85 80 Respiratory Rate 16 17 Blood Pressure 133/73 Pulse Oximetry 94 Oxygen Delivery 11/26/24 16:00 11/26/24 19:52 11/26/24 19:53 Temperature Pulse Rate 88 92 Respiratory Rate 17 Blood Pressure Pulse Oximetry 94 Oxygen Delivery Room Air 11/26/24 20:00 11/26/24 20:00 11/26/24 20:00 Temperature Pulse Rate 91 90 Respiratory Rate 19 Blood Pressure Pulse Oximetry Oxygen Delivery Room Air 11/26/24 20:27 11/27/24 00:00 11/27/24 01:32 Temperature 97.7 F Pulse Rate 90 88 90 Respiratory Rate 20 17 Blood Pressure 130/82 Pulse Oximetry 91 Oxygen Delivery 11/27/24 01:39 11/27/24 04:00 11/27/24 04:02 Temperature 97.7 F Pulse Rate 85 86 85 Respiratory Rate 17 18 Blood Pressure 123/77 Pulse Oximetry 93 Oxygen Delivery 11/27/24 07:30 11/27/24 07:30 11/27/24 07:40 Temperature Pulse Rate 75 72 Respiratory Rate 20 20 Blood Pressure Pulse Oximetry 97 Oxygen Delivery Room Air Intake/Output Intake/Output: Intake & Output 11/24/24 11/25/24 11/26/24 11/27/24 23:59 23:59 23:59 23:59 Intake Total 290 1500 390 Output Total 525 1100 400 Balance -235 400 -10 Meds/Results Medications: Active Medications Generic Name Dose Route Start Last Admin Trade Name Freq PRN Reason Stop Dose Admin Acetaminophen 650 mg 11/25/24 11:36 Acetaminophen 650 Mg Suppository RECTAL Q6H PRN Mild Pain (1-3) or Fever Hydrocodone Bitart/Acetaminophen 1 tab 11/25/24 11:36 Hydrocodone/Acetaminophen (*Crx) 5-325 Mg Tablet PO Q4H PRN Pain Rated 4-6 Albuterol/Ipratropium 3 ml 11/25/24 20:00 11/27/24 07:28 Ipratropium 0.5 Mg/Albuterol Sulfate 2.5 Mg Ampul.Neb 3 Ml INHALATION 3 ml Q6HRT MACK Administration Enoxaparin Sodium 40 mg 11/26/24 09:00 11/27/24 08:38 Enoxaparin 40 Mg/0.4 Ml Syringe SUB-Q 40 mg DAILY MACK Administration Guaifenesin 1,200 mg 11/25/24 21:00 11/27/24 08:37 Guaifenesin 12 Hr 600 Mg Tabcr PO 1,200 mg Q12HR MACK Administration Ceftriaxone Sodium 1 gm in 50 mls @ 100 mls/hr 11/26/24 12:00 11/26/24 12:56 Rocephin 1 Gm/Ns 50 Ml IVPB Infused Q24H MACK Infusion Azithromycin 500 mg in 250 mls @ 250 mls/hr 11/26/24 13:00 11/26/24 13:26 Zithromax IVPB Infused Q24H MACK Infusion Nicotine 1 patch 11/25/24 17:00 11/27/24 08:38 Nicotine (*Pbkc) 21 Mg Patch TRANSDERM 1 patch DAILY MACK Administration Nicotine 1 patch 11/26/24 09:00 03/14/25 07:59 Nicotine (*Pbkc) 21 Mg Patch TRANSDERM Not Given DAILY MACK Ondansetron HCl 4 mg 11/25/24 11:36 Ondansetron Inj 4 Mg/2 Ml Vial IV PUSH Q4H PRN Nausea Radiology Results: ITS Impressions Chest X-Ray 11/25/24 10:22 IMPRESSION: 1. Airspace opacities in right lower lung zone, consistent with pneumonia. 2. Emphysema. Venous Doppler Study 11/25/24 12:26 IMPRESSION: 1. No deep venous thrombosis. Pulmonary Perfusion Imaging 11/25/24 14:46 IMPRESSION: 1. Nondiagnostic (intermediate probability for pulmonary embolism). Chest CTA 11/26/24 22:25 IMPRESSION: 1. No pulmonary embolism. 2. Multiple patchy areas of consolidation in the right middle lower lobe suggestive of pneumonia. Follow-up to resolution advised. 3. Multilevel compression fractures most likely chronic.
[2024-11-27] MEDS: CEFEPIME 2 GM/NS 50 ML 2 GM/50 ML BAG IVPB ×2 (10:53→17:40)
[2024-11-27] MEDS: predniSONE 20 MG, predniSONE 10 MG 30 MG PO (10:53)
[2024-11-27] MEDS: AZITHROMYCIN 500 MG/NS 250 ML 500 MG/250 ML BAG 250 MG IVPB (12:15)
[2024-11-27 14:21] LABS: MRSA (PCR) NOT DETECTED (NOT DETECTE)
--- NOTE | 2024-11-27 23:00 | PCRCNOTE ---
Window of time for administration has passed. See next scheduled administration.
[2024-11-28] VITALS (18 sets, daily range): BP systolic 114–146; BP diastolic 73–83; PULSE 71–98; RESP 17–24; TEMP 36.3–36.5; O2SAT 93–96
[2024-11-28] MEDS: CEFEPIME 2 GM/NS 50 ML 2 GM/50 ML BAG IVPB ×3 (01:33→17:53)
[2024-11-28] MEDS: IPRATROPIUM 0.5 MG/ALBUTEROL SULFATE 2.5 MG AMPUL.NEB 3 ML INHALATION ×4 (02:58→19:59)
[2024-11-28] MEDS: guaiFENesin 12 HR 600 MG TABCR 1200 MG PO ×2 (08:40→21:16)
[2024-11-28] MEDS: predniSONE 20 MG, predniSONE 10 MG 30 MG PO (08:40)
[2024-11-28] MEDS: NICOTINE (*PBKC) 21 MG PATCH 1 PATCH TRANSDERM (08:40)
[2024-11-28] MEDS: ENOXAPARIN 40 MG/0.4 ML SYRINGE SUB-Q (08:41)
--- NOTE | 2024-11-28 10:36 | P.PNIM_ITS ---
Progress Note: A&P Assessment and Plan (1) Cocaine use disorder, moderate, in sustained remission: Onset Date: ~1993 Code(s): F14.21 - Cocaine dependence, in remission Status: Acute (2) Opioid use disorder, moderate, in controlled environment: Onset Date: ~1993 Code(s): F11.20 - Opioid dependence, uncomplicated Status: Acute (3) COPD (chronic obstructive pulmonary disease): Code(s): J44.9 - Chronic obstructive pulmonary disease, unspecified Status: Acute (4) Acute hypoxic respiratory failure: Code(s): J96.01 - Acute respiratory failure with hypoxia Status: Acute (5) Pneumonia: Qualifiers: Laterality: right Lung location: lower lobe of lung Pneumonia type: due to unspecified organism Qualified Code(s): J18.9 - Pneumonia, unspecified organism Code(s): J18.9 - Pneumonia, unspecified organism Status: Acute Plan (1) Right lower lobe pneumonia: Code(s): J18.9 - Pneumonia, unspecified organism Status: Acute Assessment and Plan: CTA chest shows no pulmonary embolism but multifocal pneumonia involving right middle and lower lobe Patient is antibiotics of azithromycin and Rocephin sputum culture ordered Legionella and mycoplasma pending. Patient is immunocompromised, patient has Hodgkin lymphoma, changed to cefepime IV, continue azithromycin IV Negative of MRSA screening Continue current antibiotic treatment Acute respiratory failure with hypoxemia Code(s): R09.02 - Hypoxemia Status: Acute Assessment and Plan: Likely resulting from COPD exacerbation COPD exacerbation Patient has history of COPD, patient has reported cough shortness breath and respiratory failure Resulting from pneumonia Antibiotics see above Start DuoNeb scheduled albuterol nebulizer p.r.n. Start prednisone p.o. Elevated LFTs: Code(s): R79.89 - Other specified abnormal findings of blood chemistry Status: Acute Assessment and Plan: * elevated LFTs most likely secondary to history of hepatitis-C or lymphoma * trend and monitor for any acute gastrointestinal symptoms. Polysubstance abuse: Code(s): F19.10 - Other psychoactive substance abuse, uncomplicated Status: Acute Assessment and Plan: * Counseled for use of illicit substances. (6) Tobacco dependence: Code(s): F17.200 - Nicotine dependence, unspecified, uncomplicated Status: Chronic Assessment and Plan: * Nicotine patch ordered (7) Non-Hodgkin's lymphoma: Onset Date: ~2003 Code(s): C85.90 - Non-Hodgkin lymphoma, unspecified, unspecified site Status: Acute Thoracic spine compression fracture Compression fracture is seen in the midthoracic and upper thoracic area most likely chronic on CT scan No pain Patient has no neuro focal deficit Subjective Date/time seen: 11/28/24 10:36 Interval history: I saw examined patient today, condition continue to improve, still has cough with yellow-greenish sputum, but has less phlegm today. Dyspnea is improving. Patient denies shortness breast abdomen pain nausea vomiting. Patient is afebrile blood pressure stable. Patient is afebrile, blood pressure stable Exam Narrative: GENERAL: Pleasant, in no acute distress. Well-nourished. - EYES: EOMI. Anicteric. - HENT: Moist mucous membranes. - LUNGS: Coarse breath sound bilaterall y - CARDIOVASCULAR: Regular rate and rhyth m. No murmur. No JVD. - ABDOMEN: Soft, non-tender and non-dist ended. No palpable masses. - EXTREMITIES: No edema. Peripheral puls es 2+. Non-tender. - NEUROLOGIC: No focal neurological defi cits. CN II-XII grossly intact. - PSYCHIATRIC: Awake, Alert and oriented x 3. Appropriate mood and affect. - SKIN: No rashes or lesions. Warm. - LYMPH: No cervical lymphadenopathy. Objective Data Vital Signs Vital Signs: Vital Signs - 24 hr 11/27/24 12:00 11/27/24 14:00 11/27/24 14:26 Temperature 97.4 F L Pulse Rate 94 92 92 Respiratory Rate 16 20 Blood Pressure 112/68 Pulse Oximetry 93 Oxygen Delivery Fraction of Inspired Oxygen 11/27/24 14:34 11/27/24 16:00 11/27/24 19:55 Temperature Pulse Rate 96 93 Respiratory Rate 20 Blood Pressure Pulse Oximetry Oxygen Delivery Room Air Fraction of Inspired Oxygen 11/27/24 20:00 11/27/24 20:40 11/28/24 00:00 Temperature 97.9 F Pulse Rate 98 91 95 Respiratory Rate 18 Blood Pressure 135/75 Pulse Oximetry 93 Oxygen Delivery Fraction of Inspired Oxygen 11/28/24 02:59 11/28/24 03:04 11/28/24 03:06 Temperature Pulse Rate 98 95 Respiratory Rate 20 20 Blood Pressure Pulse Oximetry 93 Oxygen Delivery Room Air Fraction of Inspired Oxygen 11/28/24 04:00 03/15/25 04:04 11/28/24 08:17 Temperature 97.7 F Pulse Rate 89 75 Respiratory Rate 18 Blood Pressure 146/83 H Pulse Oximetry 96 94 Oxygen Delivery Room Air Fraction of Inspired Oxygen 21 11/28/24 08:17 11/28/24 08:23 Temperature Pulse Rate 93 90 Respiratory Rate 20 20 Blood Pressure Pulse Oximetry Oxygen Delivery Fraction of Inspired Oxygen Intake/Output Intake/Output: Intake & Output 11/25/24 11/26/24 11/27/24 11/28/24 23:59 23:59 23:59 23:59 Intake Total 290 1500 1340 390 Output Total 525 1100 400 Balance -235 400 940 390 Meds/Results Medications: Active Medications Generic Name Dose Route Start Last Admin Trade Name Freq PRN Reason Stop Dose Admin Acetaminophen 650 mg 11/25/24 11:36 Acetaminophen 650 Mg Suppository RECTAL Q6H PRN Mild Pain (1-3) or Fever Hydrocodone Bitart/Acetaminophen 1 tab 11/25/24 11:36 Hydrocodone/Acetaminophen (*Crx) 5-325 Mg Tablet PO Q4H PRN Pain Rated 4-6 Albuterol/Ipratropium 3 ml 11/25/24 20:00 11/28/24 08:17 Ipratropium 0.5 Mg/Albuterol Sulfate 2.5 Mg Ampul.Neb 3 Ml INHALATION 3 ml Q6HRT MACK Administration Enoxaparin Sodium 40 mg 11/26/24 09:00 11/28/24 08:41 Enoxaparin 40 Mg/0.4 Ml Syringe SUB-Q 40 mg DAILY MACK Administration Guaifenesin 1,200 mg 11/25/24 21:00 11/28/24 08:40 Guaifenesin 12 Hr 600 Mg Tabcr PO 1,200 mg Q12HR MACK Administration Azithromycin 500 mg in 250 mls @ 250 mls/hr 11/26/24 13:00 11/27/24 13:15 Zithromax IVPB Infused Q24H MACK Infusion Cefepime HCl 2 gm in 50 mls @ 100 mls/hr 11/27/24 10:00 11/28/24 03:05 Maxipime 2 Gm/Ns 50 Ml IVPB Infused Q8H MACK Infusion Nicotine 1 patch 11/25/24 17:00 11/28/24 08:40 Nicotine (*Pbkc) 21 Mg Patch TRANSDERM 1 patch DAILY [facility] Administration Nicotine 1 patch 11/26/24 09:00 11/27/24 07:59 Nicotine (*Pbkc) 21 Mg Patch TRANSDERM Not Given DAILY [facility] Ondansetron HCl 4 mg 11/25/24 11:36 Ondansetron Inj 4 Mg/2 Ml Vial IV PUSH Q4H PRN Nausea Prednisone 20 mg/ Prednisone 30 mg 11/27/24 09:30 11/28/24 08:40 10 mg PO 30 mg DAILY@0800 [facility] Administration Radiology Results: ITS Impressions Chest X-Ray 11/25/24 10:22 IMPRESSION: 1. Airspace opacities in right lower lung zone, consistent with pneumonia. 2. Emphysema. Venous Doppler Study 11/25/24 12:26 IMPRESSION: 1. No deep venous thrombosis. Pulmonary Perfusion Imaging 11/25/24 14:46 IMPRESSION: 1. Nondiagnostic (intermediate probability for pulmonary embolism). Chest CTA 11/26/24 22:25 IMPRESSION: 1. No pulmonary embolism. 2. Multiple patchy areas of consolidation in the right middle lower lobe sugg estive of pneumonia. Follow-up to resolution advised. 3. Multilevel compression fractures most likely chronic. Labs Labs: Laboratory Results - last 24 hr 11/27/24 12:33 Nasal MRSA (PCR) Not detected
[2024-11-28 11:20] LABS: Hematocrit 45.3 % (42.0-52.0); Mean Corpuscular HGB Conc 33.1 g/dl (32-36); Mean Corpuscular Hemoglobin 32.4 pg (26-34); Mean Corpuscular Volume 97.8 fl (80-100); Mean Platelet Volume 9.8 fl (7.4-10.4); Platelet Count Result 177 k/mm3 (150-375); Red Blood Count 4.63 M/mm3 (4.6-6.20); Red Cell Distribution Width 12.9 % (11.5-14.5); White Blood Count 11.8 K/mm3 (4.5-10.0)
[2024-11-28 11:30] LABS: Anion Gap 8 mmol/L (4-12); Blood Urea Nitrogen 18 mg/dL (9-20); Calcium 9.5 mg/dL (8.4-10.2); Carbon Dioxide 32 mmol/L (22-30); Chloride 99 mmol/L (98-107); Estimated CRCL calculation 107 ml/min; Estimated Glomerular Filt Rate > 60; Glucose 111 mg/dL (65-110); Potassium 3.4 mmol/L (3.4-5.0); Sodium 139 mmol/L (137-145)
[2024-11-28] MEDS: AZITHROMYCIN 500 MG/NS 250 ML 500 MG/250 ML BAG 250 MG IVPB (13:27)
[2024-11-29] VITALS (7 sets, daily range): BP systolic 126; BP diastolic 70; PULSE 69–75; RESP 16–18; TEMP 36.6; O2SAT 92–100
[2024-11-29] MEDS: CEFEPIME 2 GM/NS 50 ML 2 GM/50 ML BAG IVPB (01:27)
[2024-11-29] MEDS: IPRATROPIUM 0.5 MG/ALBUTEROL SULFATE 2.5 MG AMPUL.NEB 3 ML INHALATION ×2 (01:52→07:47)
[2024-11-29] MEDS: predniSONE 20 MG, predniSONE 10 MG 30 MG PO (08:09)
[2024-11-29] MEDS: NICOTINE (*PBKC) 21 MG PATCH 1 PATCH TRANSDERM (08:09)
[2024-11-29] MEDS: guaiFENesin 12 HR 600 MG TABCR 1200 MG PO (08:09)
[2024-11-29] MEDS: ENOXAPARIN 40 MG/0.4 ML SYRINGE SUB-Q (08:09)
--- NOTE | 2024-11-29 09:01 | P.PNIM_ITS ---
Progress Note: A&P Assessment and Plan (1) Cocaine use disorder, moderate, in sustained remission: Onset Date: ~1993 Code(s): F14.21 - Cocaine dependence, in remission Status: Acute (2) Opioid use disorder, moderate, in controlled environment: Onset Date: ~1993 Code(s): F11.20 - Opioid dependence, uncomplicated Status: Acute (3) COPD (chronic obstructive pulmonary disease): Code(s): J44.9 - Chronic obstructive pulmonary disease, unspecified Status: Acute (4) Acute hypoxic respiratory failure: Code(s): J96.01 - Acute respiratory failure with hypoxia Status: Acute (5) Pneumonia: Qualifiers: Laterality: right Lung location: lower lobe of lung Pneumonia type: due to unspecified organism Qualified Code(s): J18.9 - Pneumonia, unspecified organism Code(s): J18.9 - Pneumonia, unspecified organism Status: Acute Plan (1) Right lower lobe pneumonia: Code(s): J18.9 - Pneumonia, unspecified organism Status: Acute Assessment and Plan: CTA chest shows no pulmonary embolism but multifocal pneumonia involving right middle and lower lobe Patient is antibiotics of azithromycin and Rocephin sputum culture ordered Legionella and mycoplasma pending. Patient is immunocompromised, patient has Hodgkin lymphoma, changed to cefepime IV, continue azithromycin IV Negative of MRSA screening Change or azithromycin and cefdinir p.o. today Acute respiratory failure with hypoxemia Code(s): R09.02 - Hypoxemia Status: Acute Assessment and Plan: Likely resulting from COPD exacerbation Resolved, patient is on room air now COPD exacerbation Patient has history of COPD, patient has reported cough shortness breath and respiratory failure Resulting from pneumonia Antibiotics see above Received DuoNeb scheduled albuterol nebulizer p.r.n. and prednisone Changed to Combivent and albuterol inhaler p.r.n. on discharge Elevated LFTs: Code(s): R79.89 - Other specified abnormal findings of blood chemistry Status: Acute Assessment and Plan: elevated LFTs most likely secondary to history of hepatitis-C or lymphoma Stable Polysubstance abuse: Code(s): F19.10 - Other psychoactive substance abuse, uncomplicated Status: Acute Assessment and Plan: Counseled for use of illicit substances. (6) Tobacco dependence: Code(s): F17.200 - Nicotine dependence, unspecified, uncomplicated Status: Chronic Assessment and Plan: Nicotine patch ordered (7) Non-Hodgkin's lymphoma: Onset Date: ~2003 Code(s): C85.90 - Non-Hodgkin lymphoma, unspecified, unspecified site Status: Acute Thoracic spine compression fracture Compression fracture is seen in the midthoracic and upper thoracic area most likely chronic on CT scan No pain Patient has no neuro focal deficit Subjective Date/time seen: 11/29/24 09:01 Interval history: Patient condition continue to improve, no new issue even overnight. Afebrile blood pressure stable on room air Labs reviewed, leukocytosis is continue to improve Exam Narrative: GENERAL: Pleasant, in no acute distress. Well-nourished. - EYES: EOMI. Anicteric. - HENT: Moist mucous membranes. - LUNGS: Clear to auscultation bilateral ly, no wheezing, rhonchi, or rales. - CARDIOVASCULAR: Regular rate and rhyth m. No murmur. No JVD. - ABDOMEN: Soft, non-tender and non-dist ended. No palpable masses. - EXTREMITIES: No edema. Peripheral puls es 2+. Non-tender. - NEUROLOGIC: No focal neurological defi cits. CN II-XII grossly intact. - PSYCHIATRIC: Awake, Alert and oriented x 3. Appropriate mood and affect. - SKIN: No rashes or lesions. Warm. - LYMPH: No cervical lymphadenopathy. Objective Data Vital Signs Vital Signs: Vital Signs - 24 hr 11/28/24 12:00 11/28/24 14:00 11/28/24 14:25 Temperature 97.6 F Pulse Rate 73 72 Respiratory Rate 17 Blood Pressure 144/78 H Pulse Oximetry 96 95 Oxygen Delivery Room Air Fraction of Inspired Oxygen 21 11/28/24 14:25 11/28/24 14:30 11/28/24 16:00 Temperature Pulse Rate 95 94 82 Respiratory Rate 20 20 Blood Pressure Pulse Oximetry Oxygen Delivery Fraction of Inspired Oxygen 11/28/24 19:59 11/28/24 19:59 11/28/24 20:00 Temperature Pulse Rate 75 75 Respiratory Rate 24 H 24 H Blood Pressure Pulse Oximetry 96 95 Oxygen Delivery Room Air Room Air Fraction of Inspired Oxygen 21 11/28/24 20:00 11/28/24 20:10 11/28/24 22:00 Temperature 97.3 F L Pulse Rate 75 76 71 Respiratory Rate 20 18 Blood Pressure 114/73 Pulse Oximetry 95 Oxygen Delivery Fraction of Inspired Oxygen 11/29/24 00:00 11/29/24 01:56 11/29/24 01:56 Temperature Pulse Rate 69 71 71 Respiratory Rate 16 16 Blood Pressure Pulse Oximetry 92 Oxygen Delivery Room Air Fraction of Inspired Oxygen 21 11/29/24 02:05 11/29/24 04:00 11/29/24 06:00 Temperature 97.9 F Pulse Rate 75 73 75 Respiratory Rate 16 18 Blood Pressure 126/70 Pulse Oximetry 100 Oxygen Delivery Fraction of Inspired Oxygen 11/29/24 07:47 11/29/24 07:47 11/29/24 08:03 Temperature Pulse Rate 72 72 Respiratory Rate 16 16 Blood Pressure Pulse Oximetry 96 Oxygen Delivery Room Air Fraction of Inspired Oxygen Intake/Output Intake/Output: Intake & Output 11/26/24 11/27/24 11/28/24 11/29/24 23:59 23:59 23:59 23:59 Intake Total 1500 1340 1090 50 Output Total 1100 400 Balance 004 456 4786 50 Meds/Results Medications: Active Medications Generic Name Dose Route Start Last Admin Trade Name Freq PRN Reason Stop Dose Admin Acetaminophen 650 mg 11/25/24 11:36 Acetaminophen 650 Mg Suppository RECTAL Q6H PRN Mild Pain (1-3) or Fever Hydrocodone Bitart/Acetaminophen 1 tab 11/25/24 11:36 Hydrocodone/Acetaminophen (*Crx) 5-325 Mg Tablet PO Q4H PRN Pain Rated 4-6 Albuterol/Ipratropium 3 ml 11/25/24 20:00 11/29/24 07:47 Ipratropium 0.5 Mg/Albuterol Sulfate 2.5 Mg Ampul.Neb 3 Ml INHALATION 3 ml Q6HRT MACK Administration Calcium Carbonate 200 mg 11/28/24 19:24 Calcium Carbonate (Tums) 500 Mg (200 Mg Elemental) PO BID PRN Indigestion Enoxaparin Sodium 40 mg 11/26/24 09:00 11/29/24 08:09 Enoxaparin 40 Mg/0.4 Ml Syringe SUB-Q 40 mg DAILY [facility] Administration Guaifenesin 1,200 mg 11/25/24 21:00 11/29/24 08:09 Guaifenesin 12 Hr 600 Mg Tabcr PO 1,200 mg Q12HR MACK Administration Azithromycin 500 mg in 250 mls @ 250 mls/hr 11/26/24 13:00 11/28/24 13:27 Zithromax IVPB 250 mls/hr Q24H [facility] Administration Cefepime HCl 2 gm in 50 mls @ 100 mls/hr 11/27/24 10:00 11/29/24 01:57 Maxipime 2 Gm/Ns 50 Ml IVPB Infused Q8H [facility] Infusion Nicotine 1 patch 11/25/24 17:00 11/29/24 08:09 Nicotine (*Pbkc) 21 Mg Patch TRANSDERM 1 patch DAILY [facility] Administration Nicotine 1 patch 11/26/24 09:00 11/28/24 12:07 Nicotine (*Pbkc) 21 Mg Patch TRANSDERM Not Given DAILY [facility] Ondansetron HCl 4 mg 11/25/24 11:36 Ondansetron Inj 4 Mg/2 Ml Vial IV PUSH Q4H PRN Nausea Prednisone 20 mg/ Prednisone 30 mg 11/27/24 09:30 11/29/24 08:09 10 mg PO 30 mg DAILY@0800 [facility] Administration Radiology Results: ITS Impressions Chest X-Ray 11/25/24 10:22 IMPRESSION: 1. Airspace opacities in right lower lung zone, consistent with pneumonia. 2. Emphysema. Venous Doppler Study 11/25/24 12:26 IMPRESSION: 1. No deep venous thrombosis. Pulmonary Perfusion Imaging 11/25/24 14:46 IMPRESSION: 1. Nondiagnostic (intermediate probability for pulmonary embolism). Chest CTA 11/26/24 22:25 IMPRESSION: 1. No pulmonary embolism. 2. Multiple patchy areas of consolidation in the right middle lower lobe suggestive of pneumonia. Follow-up to resolution advised. 3. Multilevel compression fractures most likely chronic. Labs Labs: Laboratory Results - last 24 hr 11/25/24 11/28/24 18:04 11:16 WBC 11.8 H RBC 4.63 Hgb 15.0 Hct 45.3 MCV 97.8 MCH 32.4 MCHC 33.1 RDW 12.9 Plt Count 177 MPV 9.8 Sodium 139 Potassium 3.4 Chloride 99 Carbon Dioxide 32 H Anion Gap 8 BUN 18 Creatinine 0.55 L Estim Creat Clear Calc 107 Estimated GFR > 60 Glucose 111 H Calcium 9.5 Urine Pneumococcal Ag Detected A
--- NOTE | 2024-11-29 09:04 | P.DS_ITS ---
DS: Admitting Diagnosis Discharge Date 11/29/24 Admitting Diagnosis (1) Cocaine use disorder, moderate, in sustained remission: Onset Date: Code(s): F14.21 - Cocaine dependence, in remission Status: Acute (2) Opioid use disorder, moderate, in controlled environment: Onset Date: ~1993 Code(s): F11.20 - Opioid dependence, uncomplicated Status: Acute (3) COPD (chronic obstructive pulmonary disease): Code(s): J44.9 - Chronic obstructive pulmonary disease, unspecified Status: Acute (4) Acute hypoxic respiratory failure: Code(s): J96.01 - Acute respiratory failure with hypoxia Status: Acute (5) Pneumonia: Qualifiers: Laterality: right Lung location: lower lobe of lung Pneumonia type: due to unspecified organism Qualified Code(s): J18.9 - Pneumonia, unspecified organism Code(s): J18.9 - Pneumonia, unspecified organism Status: Acute DS: Discharge Diagnosis Discharge Diagnosis (1) Cocaine use disorder, moderate, in sustained remission: Onset Date: Code(s): F14.21 - Cocaine dependence, in remission Status: Acute (2) Opioid use disorder, moderate, in controlled environment: Onset Date: Code(s): F11.20 - Opioid dependence, uncomplicated Status: Acute (3) COPD (chronic obstructive pulmonary disease): Code(s): J44.9 - Chronic obstructive pulmonary disease, unspecified Status: Acute (4) Acute hypoxic respiratory failure: Code(s): J96.01 - Acute respiratory failure with hypoxia Status: Acute (5) Pneumonia: Qualifiers: Laterality: right Lung location: lower lobe of lung Pneumonia type: due to unspecified organism Qualified Code(s): J18.9 - Pneumonia, unspecified organism Code(s): J18.9 - Pneumonia, unspecified organism Status: Acute DS: Summary Hospital Course Hospital Course: Per H&P This is a 64-year-old male with history of non-Hodgkin lymphoma diagnosed in 2003 for which he has not followed up with his doctor for least 3 years, coronary artery disease, chronic obstructive pulmonary disease, and hepatitis C who presented to the emergency department complaints of right back pain and shortness of breath. The patient provides the following history. Yesterday he began to feel increasingly short of breath from baseline and reports nonradiating, sharp and shooting pain in the right mid back which is worse with movement and deep inspiration. He has not noticed any significant alleviating factors. Additionally he endorses a chronic cough although over the past 3 days it has worsened and is now productive of green-colored sputum. He has had sweats but denies fever, chills, sinus congestion, sore throat, exertional chest pain, vomiting, diarrhea, lower extremity edema, and calf pain. In the ED: Vital signs were stable on arrival. Labs were significant for WBC count of 15.0, D-dimer 0.69, sodium 136, chloride 91, carbon dioxide 36, AST 72, ALT 70, alkaline phosphatase 154, proBNP 490, troponin less than 0.012. Urine drug screen was positive for amphetamines and cannabinoids. Respiratory panel was negative. Chest x-ray showed airspace opacities in right lower lung zone consistent with pneumonia and findings of emphysema. Lower extremity venous Doppler ultrasounds were negative for DVT. He was given a nebulizer treatment and doses of azithromycin and ceftriaxone. With ambulation the patient'ss SpO2 dropped into the upper 80s and he is being admitted in this setting. The following med issues have been addressed during hospitalization (1) Right lower lobe pneumonia: Code(s): J18.9 - Pneumonia, unspecified organism Status: Acute Assessment and Plan: CTA chest shows no pulmonary embolism but multifocal pneumonia involving right middle and lower lobe Patient is antibiotics of azithromycin and Rocephin sputum culture ordered Legionella and mycoplasma pending. Patient is immunocompromised, patient has Hodgkin lymphoma, changed to cefepime IV, continue azithromycin IV Negative of MRSA screening Change or azithromycin and cefdinir p.o. today Acute respiratory failure with hypoxemia Code(s): R09.02 - Hypoxemia Status: Acute Assessment and Plan: Likely resulting from COPD exacerbation Resolved, patient is on room air now COPD exacerbation Patient has history of COPD, patient has reported cough shortness breath and respiratory failure Resulting from pneumonia Antibiotics see above Received DuoNeb scheduled albuterol nebulizer p.r.n. and prednisone Changed to Combivent and albuterol inhaler p.r.n. on discharge Elevated LFTs: Code(s): R79.89 - Other specified abnormal findings of blood chemistry Status: Acute Assessment and Plan: elevated LFTs most likely secondary to history of hepatitis-C or lymphoma Stable Polysubstance abuse: Code(s): F19.10 - Other psychoactive substance abuse, uncomplicated Status: Acute Assessment and Plan: Counseled for use of illicit substances. (6) Tobacco dependence: Code(s): F17.200 - Nicotine dependence, unspecified, uncomplicated Status: Chronic Assessment and Plan: Nicotine patch ordered (7) Non-Hodgkin's lymphoma: Onset Date: ~2003 Code(s): C85.90 - Non-Hodgkin lymphoma, unspecified, unspecified site Status: Acute Thoracic spine compression fracture Compression fracture is seen in the midthoracic and upper thoracic area most likely chronic on CT scan No pain Patient has no neuro focal deficit Time Spent with Patient Time attestation: Total time spent providing and/or coordinating discharge services: Exam Narrative: GENERAL: Pleasant, in no acute distress. Well-nourished. - EYES: EOMI. Anicteric. - HENT: Moist mucous membranes. - LUNGS: Clear to auscultation bilateral ly, no wheezing, rhonchi, or rales. - CARDIOVASCULAR: Regular rate and rhyth m. No murmur. No JVD. - ABDOMEN: Soft, non-tender and non-dist ended. No palpable masses. - EXTREMITIES: No edema. Peripheral puls es 2+. Non-tender. - NEUROLOGIC: No focal neurological defi cits. CN II-XII grossly intact. - PSYCHIATRIC: Awake, Alert and oriented x 3. Appropriate mood and affect. - SKIN: No rashes or lesions. Warm. - LYMPH: No cervical lymphadenopathy. DS: Data Data Completed and Pending Labs on day of discharge: Labs from last 24 hours 11/28/24 11/25/24 11:16 18:04 WBC 11.8 H RBC 4.63 Hgb 15.0 Hct 45.3 MCV 97.8 MCH 32.4 MCHC 33.1 RDW 12.9 Plt Count 177 MPV 9.8 Sodium 139 Potassium 3.4 Chloride 99 Carbon Dioxide 32 H Anion Gap 8 BUN 18 Creatinine 0.55 L Estim Creat Clear Calc 107 Estimated GFR > 60 Glucose 111 H Calcium 9.5 Urine Pneumococcal Ag Detected A Preliminary micro results at discharge 11/25/24 11:34 Blood Culture - Preliminary Blood 11/25/24 11:34 Blood Culture - Preliminary Blood Discharge Plan Discharge Attending physician on discharge: jonathan Discharging Clinician: Markos Solomon Anticipated Discharge Date/Time: 11/29/24 09:05 Patient Disposition: Home, Self-Care Activity: as tolerated Diet: as tolerated and regular Patient Instructions: Antibiotic Form Patient Language: Chinese Stand Alone Forms: General Discharge Information Follow-up/Referrals: UNKNOWN,DOCTOR [Primary Care Provider] - (See PCP in 1 week) Discharge Medications: New Combivent Respimat 20-100 mcg/actuation mist 1 puff inhalation QID PRN (Reason: shortness of breath or wheezing) Qty: 4 0RF Rx Instructions: space evenly during waking hours azithromycin 250 mg tablet 250 mg PO DAILY 3 Days Qty: 3 0RF Rx Instructions: start on day 2 of therapy cefdinir 300 mg capsule 300 mg PO Q12H Qty: 7 0RF Continued albuterol sulfate [Ventolin HFA] 90 mcg/actuation HFA aerosol inhaler 2 puff INHALATION Q4-6H PRN (Reason: shortness of breath) Qty: 18 11RF Date of admission: 11/26/24 09:34 Primary Care Provider: UNKNOWN,DOCTOR Admitting Provider: Karina Kelly Attending physician on admission: Karina Kelly Condition: Stable
[2024-11-30 17:49] LABS: Mycoplasma IgM Antibody Titer. 325 U/mL
[2024-12-04 19:59] LABS: Legionella pneumophila Ag Ur. NOT DETECTED
== END 2024-11-29 09:55 | disposition home or self-care (01) | DRG 139 ==
LOC: ANHED 09:41 → ANH2MED 12:12
PROVIDERS: Emergency Medicine; Physician Assistant; Admitting Provider Family Medicine; Emergency Provider Physician Assistant; Visit Provider Hospitalist
DX: J18.9 Pneumonia, unspecified organism (principal); J44.1 Chronic obstructive pulmonary disease with (acute) exacerbation; J44.0 Chronic obstructive pulmonary disease with (acute) lower respiratory infection; C81.90 Hodgkin lymphoma, unspecified, unspecified site; I25.10 Atherosclerotic heart disease of native coronary artery without angina pectoris; F14.21 Cocaine dependence, in remission; F11.20 Opioid dependence, uncomplicated; F19.10 Other psychoactive substance abuse, uncomplicated; F17.210 Nicotine dependence, cigarettes, uncomplicated; Z86.19 Personal history of other infectious and parasitic diseases
CPT/HCPCS: 36415; 71046; 71275; 78580; 80048; 80053; 80307; 81001; 83735; 83880; 84100; 84484; 85025; 85027; 85380; 85610; 85730; 86738; 87040; 87449; 87637; 87641; 87899; 93005; 93970; 94640; 96365; 96367; 96372; 96375; 99285; A9270; A9540; G0378; G0379; J0456; J0692; J0696; J1200; J1650; J2919; J7512; Q9967

== ENCOUNTER 2025-05-06 21:22 | Emergency (ER) | payer OTHER, SELFPAY ==
[2025-05-06 21:28] VITALS: BP 123/60; PULSE 96; RESP 20; TEMP 36.9; O2SAT 95
--- OUTSIDE RECORDS SUMMARY | 2025-05-06 21:44 | XMS_ITS | Clinical Summary ---
Author Organization [facility] Address [address] [place] [address] Care Team Providers Care Designer/Writer Name Role Phone Lisa Ortiz MD Primary Care Provider [phone] Source Comments [facility] [employer],non-owned Affiliates and Associated Physician Practices is amultiple site organization consisting of ambulatory clinics and hospital sitesin [place], [place] and [place]. This disclosure is being madepursuant to the Care Everywhere program and may not contain all information available regarding this patient. Last updated 18.[facility] [employer] Allergies Active Allergy Reactions Criticality Noted Date Comments Hm Diarrhea Low 11/18/2012 Mostly milk and cheese Active Problems Problem Noted Date Diagnosed Date Closed fracture of patella 04/15/2013 Viral hepatitis C without hepatic coma 3 Non-Hodgkin lymphoma 11/18/2012 Family History Medical History Relation Name Comments None Known Brother Status: Alive None Known Father Status: Alive Aneurysm Mother Heart Disease Mother Status: Alive Heart Surgery Mother Heart Disease Sister 1 Status: Alive None Known Sister 2 Status: Alive Relation Name Status Comments Brother Father Mother Sister 1 Sister 2 Social History Tobacco Use Types Packs/Day Years Used Date Smoking Tobacco: Every Day Cigarettes Smokeless Tobacco: Never Alcohol Use Standard Drinks/Week Comments No 0 (1 standard drink = 0.6 oz pur e alcohol) Sex and Gender Information Value Date Recorded Sex Assigned at Not on file Legal Sex Male 6:24 PM [employer] Gender Identity Not on file Sexual Orientation Not on file Last Filed Vital Signs Vital Sign Reading Time Taken Comments Blood Pressure 110/70 08/18/2013 9:12 AM [employer] Pulse 90 05/26/2013 11:47 AM CDT Temperature 36.3 C (97.3 F) 08/18/2013 9:12 AM [employer] Respiratory Rate 20 05/26/2013 11:47 AM CDT Oxygen Saturation 97% 04/15/2013 1:40 PM CDT Inhaled Oxygen Concentration - - Weight 63 kg (139 lb) 08/18/2013 9:12 AM [employer] Height 180.3 cm (5' 11) 08/18/2013 9:12 AM [employer] Body Mass Index 19.39 08/18/2013 9:12 AM [employer] Plan of Treatment Health Maintenance Due Date Last Done Comments COLOGUARD (AGES 45-75) - COLON CA SCREENING 1962 COLON MONITORING 1962 COLONOSCOPY - COLON CA SCREENING 1962 CT COLONOGRAPHY - COLON CA SCREENING 1962 Colorectal Cancer Screening 1962 FIT - COLON CA SCREENING 1962 FLEX SIG - COLON CA SCREENING 1962 LIPID TESTING 1962 HIV SCREENING 1977 DTAP/TDAP/TD VACCINES (1 - Tdap) 1981 PNEUMOCOCCAL VACCINE 50+ (1 of 1 - PCV) 2012 ZOSTER VACCINE (1 of 2) 2012 COVID-19 VACCINE (1 - season) 2024 DEPRESSION SCREENING 09/16/2024 INFLUENZA VACCINE (#1) 2025 Respiratory Syncytial Virus (RSV) Vaccine Pt: or over 60 yrs (1 - 1-dose 75+ series) 2037 HEPATITIS C SCREENING Completed 04/08/2013 , 12/30/2012, 11/18/2012, Additional history exists HEPATITIS B VACCINE Aged Out No longe r eligible based on patient's age to complete this topic HIB VACCINE Aged Out No longer eligi ble based on patient's age to complete this topic HPV VACCINE Aged Out No longer eligi ble based on patient's age to complete this topic MENINGOCOCCAL (Group B) VACCINE SHARED DECISION-MAKING Aged Out No longer eligible based on patient's age to complete this topic MENINGOCOCCAL GROUPS A/C/Y/W VACCINE Aged Out No longer eligible based on patient's age to complete this topic Procedures Procedure Name Priority Date/Time Associated Diagnosis Comments HEPATITIS C RNA QUANTITATIVE Routine 11/18/2012 12:36 PM [employer] from Last 3 Months or Most Recently Relevant to Health Maintenance Results * (ABNORMAL) HEPATITIS C RNA QUANTITATIVE PCR (11/18/2012 12:36 PM [employer]) Hepatitis C Virus PCR Quantitative (H) () [facility] Comment: Specimen: 1 ml Serum Reference: [id number] Test: Hepatitis C RT-PCR (Quantitative) RESULT 10,862,600 IU/ml Reference Range Not Detected INTERPRETATION The quantitative Hepatitis C viral RNA RT-PCR determination was performed on a serum sample and is reported in IU/ml. Detection and quantification was successful. COMMENT The Hepatitis C (HCV) viral RNA analysis utilized a serum sample, real-time reverse crm solution architect PCR, and is reported as Not Detected/Detected (<50)/Quantity (IU/ml) or >35,000,000 IU/ml. The analytical sensitivity of the assay is 7 IU/ml (95% of samples with this HCV RNA level were detected). Values less than 7 IU/ml are reported as Not Detected (<7 IU/ml); values greater than 7 IU/ml and less than 50 IU/ml are reported as Detected (<50). The linear range is from 50 IU/ml to 35,000,000 IU/ml. Values greater than 35,000,000 IU/ml are reported as >35,000,000 IU/ml. The detection/quantitation of HCV RNA in serum or plasma is based on the isolation of HCV RNA with reverse crm solution architect of genomic HCV RNA followed by real-time PCR in the presence of a reference standard RNA. The standard ensures that RNA was isolated, that no general significant inhibitors of the RT-PCR process were present. This test was developed and its performance characteristics determined by the [facility] at [facility]. It has not been cleared or approved by the U.S. Food and Drug Administration. The FDA has determined that such clearance or approval is not necessary. This test is used for clinical purposes. It should not be regarded as investigational or for research. This laboratory is certified under the Clinical Laboratory Improvement Amendments of 1988 (CLIA-88) as qualified to perform high complexity clinical laboratory testing. Test performed at [facility], [address] [place] [address] This case has been personally reviewed and interpreted by the attending (teaching) pathologist. Final Diagnosis performed by Sultan Amanda Crooks M.D., Ph.D. Electronically signed 11/20/2012 11/18/2012 12:3 6 PM [employer] 11/18/2012 1:23 PM [employer] us Ramsey Merino MD LAB - CHEMISTRY ORDERAB LES Final Result [facility] [address] [phone] from Last 3 Months or Most Recently Relevant to Health Maintenance Care Teams Designer/Writer Relationship Specialty Start Date End Date Lisa Ortiz MD PCP - General 05/01/13
--- OUTSIDE RECORDS SUMMARY | 2025-05-06 21:44 | XMS_ITS | Encounter Summary ---
Author Organization [facility] Address [facility] [place] [address] Care Team Providers Care Hot Stamp Operator Name Role Phone Lisa Ortiz MD Primary Care Provider None, Provider Primary Care Provider Unavaila ble Encounter Details Date Type Department Care Team (Latest Contact Info) Description 07/22/2018 Abstract [facility] , Generic Conversion, Social History [...] on filedocumented in this encounter Care Teams Hot Stamp Operator Relationship Specialty Start Date End Date Lisa Ortiz MD PCP - General 08/03/13 08/12/23 None, ProviderMD PCP - General UNKNOWN PHYSICIAN SPECIALTY 08/13/23 documented as of this encounter
--- OUTSIDE RECORDS SUMMARY | 2025-05-06 21:44 | XMS_ITS | Clinical Summary ---
Author Organization 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
--- NOTE | 2025-05-06 21:51 | ED.EXTPRO ---
HPI - Extremity Problem General Chief complaint: Extremity Problem,Nontraumatic Stated complaint: right shoulder pain, no recent trauma Time Seen by Provider: 05/06/25 21:36 History of Present Illness HPI Narrative: Patient is a 62-year-old male who presents to the emergency department this evening complaining of right shoulder pain. States that he injured it approximately 2 weeks ago possibly lifting something, denies any trauma or falls, any MVC. Patient states that he went and had x-rays performed at [facility] and was sent home with 2 prescriptions for pain medications which he lost and did not fill. Patient states that he has been taking Tylenol/ ibuprofen at home for the pain with minimal to no relief. Related Data Allergies Allergy/AdvReac Type Severity Reaction Status Date / Time milk Allergy Mild Diarrhea Verified 05/06/25 21:32 Iodinated Contrast Media Allergy Unknown Hives Verified 05/06/25 21:32 Review of Systems Review of Systems: All systems are reviewed and are negative unless stated otherwise in the HPI. [facility] Past Medical History Medical History Tobacco dependence Polysubstance abuse Chronic obstructive pulmonary disease Hepatitis C Cocaine use disorder, moderate, in sustained remission (~1993) Opioid use disorder, moderate, in controlled environment (~1993) Non-Hodgkin's lymphoma (~2003) Coronary artery disease due to lipid rich plaque (~03/2016) Anxiety associated with depression (2003) Depression due to physical illness (2003) Chronic pain due to malignant neoplastic disease (~1993) Surgical History Surgical History History of coronary artery stent placement right coronary artery History of arthroscopy of left knee Family History Family History Mother Family history of coronary artery disease Family history of heart disease in male family member before age 55 Family history of cardiovascular disease, Onset Age: 74 Acute myocardial infarction Family history of congestive heart failure Sibling Family history of heart disease in male family member before age 55 Family history of cardiovascular disease Father Cerebrovascular accident, Onset Age: 80 Hypertension Family history of congestive heart failure Other Diabetes mellitus Family history of kidney disease Social History Social History Social History: Surrogate medical decision maker: Edie Cobb, mother. Code status: Full code. Smoking packs per day: 1 Smoking cigarettes per day: 20.0 Years smoked: 50 Smoking pack-years: 50.00 Smoking status: Current every day smoker Tobacco type: cigarettes Second hand tobacco smoke exposure: No Alcohol intake: former Alcohol use details: No alcohol since the mid following inpatient rehab. Substance use: current Other substance usage details: Urine drug screen positive for cannabinoids and amphetamines on 11/25/2024. Last use: History of cocaine and heroin use Do You Feel Safe in your Home?: Yes Lack of Transportation: No Lack of Food: Never True Current Housing: I Have Housing Concerned About Future Housing: No Difficulty Paying Gas/Electric Bills: No Difficulty Paying for Meds: No Currently Unemployed: No Education: Grade School Difficulty w/ Childcare or Family Care: No Spiritual care concerns: No Exam Narrative: General: Alert, awake, afebrile, in no acute distress. HEENT: PERRL, no rhinorrhea, no post nasal drip, oropharynx clear. Neck: Trachea midline, no JVD, no lymphadenopathy. Cardiovascular: Regular rate and rhythm, no murmurs, rubs or gallops, no peripheral edema. Respiratory: Clear to auscultation bilaterally, no tachypnea, no wheezing, no rhonchi, no rubs, no respiratory distress. Abdomen: Soft, nontender, nondistended, no rebound, no guarding, no peritoneal signs. Musculoskeletal: No joint swelling or deformity, normal muscle tone, intact range of motion at the right shoulder joint although limited with shoulder abduction past 90? secondary to pain. Skin: No rashes or petechia, no signs of infection. Psychiatric: Alert and oriented, normal behavior and judgment for situation. Neurological: Alert and oriented to person, place, and time. Follows all commands. No focal deficits, speech is clear and fluent. Course Vital Signs Vital signs: Vital Signs Temperature 98.5 F 05/06/25 21:28 Pulse Rate 96 05/06/25 21:28 Respiratory Rate 20 05/06/25 21:28 Blood Pressure 123/60 05/06/25 21:28 Pulse Oximetry 95 05/06/25 21:28 Oxygen Delivery Room Air 05/06/25 21:28 Temperature 98.5 F 05/06/25 21:28 Pulse Rate 96 05/06/25 21:28 Respiratory Rate 20 05/06/25 21:28 Blood Pressure 123/60 05/06/25 21:28 Pulse Oximetry 95 05/06/25 21:28 Oxygen Delivery Room Air 05/06/25 21:28 MDM - Extremity (Nontraumatic) MDM Narrative Medical decision making narrative: The patient was evaluated by myself in the emergency department. History is obtained from patient who is an independent historian and physical exam was performed. External medical records were reviewed at this time. Patient was administered 15 mg of IM Toradol for pain. Differential diagnosis considerations include rotator cuff injury, bursitis, musculoskeletal strain. Comorbidities impacting this visit include none. I have evaluated and discussed social determinants of health with the patient that could potentially impact subsequent diagnosis and treatment plans. On repeat assessment of the patient, reevaluation revealed that the patient is doing well and is in no acute distress. Patient symptoms have improved since she arrived to our emergency department. Repeat vital signs were all reviewed and noted to be stable. Differential diagnosis and treatment plan were discussed with the patient at bedside. Patient agrees with discussion and after shared medical decision making agrees with discharge. All questions were answered to the patient's satisfaction. Patient will follow up with Orthopedics in 3-5 days. A script for [place] was sent to patient's pharmacy to use as needed for pain until he is followed up with Ortho. Patient was provided with strict return precautions and instructed to return to the emergency department if any new or worsening symptoms develop. The patient was discharged in stable condition. Discharge Plan Discharge Clinical Impression: Injury of right shoulder Patient Disposition: Home Condition: Improved Instructions: Antibiotic Form, Rotator Cuff Injury (ED), Shoulder Sprain (ED) Additional Instructions: Please follow-up with your orthopedic surgeon you were provided with today within the next 3-5 days. Return to the ED if any new or worsening symptoms develop. Patient Language: [place] Prescriptions: New hydrocodone-acetaminophen 5-325 mg tablet 1 tablet PO Q8H PRN (Reason: pain) 3 Days Qty: 8 0RF No Action Combivent Respimat 20-100 mcg/actuation mist 1 puff inhalation QID PRN (Reason: shortness of breath or wheezing) Qty: 4 0RF Rx Instructions: space evenly during waking hours azithromycin 250 mg tablet 250 mg PO DAILY 3 Days Qty: 3 0RF Rx Instructions: start on day 2 of therapy cefdinir 300 mg capsule 300 mg PO Q12H Qty: 7 0RF albuterol sulfate [Ventolin HFA] 90 mcg/actuation HFA aerosol inhaler 2 puff INHALATION Q4-6H PRN (Reason: shortness of breath) Qty: 18 11RF Follow-up/Referrals: Harvey Alejandre MD [Physician, Orthopedics] - 3 Days UNKNOWN,DOCTOR [Primary Care Provider] Time of Disposition: 21:54
[2025-05-06] MEDS: KETOROLAC 30 MG/ML VIAL (*BKC) 15 MG IM (21:53)
[2025-05-06 22:09] VITALS: BP 129/63; PULSE 76; RESP 16; TEMP 36.8; O2SAT 98
== END 2025-05-06 22:10 | disposition home or self-care (01) ==
PROVIDERS: Emergency Provider Emergency Medicine
DX: S49.91XA Unspecified injury of right shoulder and upper arm, initial encounter (principal); J44.9 Chronic obstructive pulmonary disease, unspecified; I25.10 Atherosclerotic heart disease of native coronary artery without angina pectoris; F17.210 Nicotine dependence, cigarettes, uncomplicated; Z95.5 Presence of coronary angioplasty implant and graft; Z86.19 Personal history of other infectious and parasitic diseases; Z85.72 Personal history of non-Hodgkin lymphomas; X58.XXXA Exposure to other specified factors, initial encounter
CPT/HCPCS: 96372; 99283; J1885